=== PATIENT | male | born 1955 | race Caucasian/White ===

== ENCOUNTER → 2018-05-06 15:56 | Outpatient (CLI) | payer OTHER, SELFPAY ==
--- NOTE | 2018-05-06 16:02 | RAD_ITS ---
STUDY: X-RAY - ABDOMEN/PELVIS REASON FOR EXAM: Male, 63 years old. Right kidney stone. TECHNIQUE: For AP images of the abdomen were obtained. COMPARISON: April 02, 2017 FINDINGS: There is an unremarkable bowel gas pattern. There is no demonstrated free abdominal air. There is a 9.2 mm calcific round density within the expected region of the right kidney. Normal soft tissue structures. Normal visualized osseous structures. RAD/Abd Inc Decub and/or Erect IMPRESSION: 9.2 mm right renal calculus. Electronically Signed: Yasmin Ayala MD at 19:58 EDT Tel , Service support ,
== END ==
PROVIDERS: Family Provider Family Medicine Geriatric Medicine; PCP Family Medicine Geriatric Medicine; Visit Provider Nurse Practitioner Adult Health
DX: N20.0 Calculus of kidney (principal)
CPT/HCPCS: 74019

== ENCOUNTER → 2018-07-29 16:04 | Outpatient (CLI) | payer OTHER, SELFPAY ==
[2018-07-29 17:16] LABS: Absolute Lymphocyte Count 1.71 X10^3/ul (0.83-4.51); Absolute Neutrophil Count 3.9 X10^3/uL (2.0-7.7); Basophil# 0.02 X10^3/uL; Basophil% 0.3 % (0-1); Eosinophil# 0.33 X10^3/uL; Eosinophils% 5.2 % (0-5); Hematocrit 45.3 % (40-54); Hemoglobin 15.3 g/dl (13.0-16.5); Lymphocyte # 1.71 X10^3/ul (4.0); Mean Corp Hgb Conc 33.8 g/gl (32-36); Mean Corpuscular Hgb 29.8 pg (27.0-32.0); Mean Corpuscular Volume 88.1 fL (80-94); Mean Platelet Vol. 10.7 fl (6.2-12.0); Monocyte# 0.36 X10^3/uL; Monocyte% 5.7 % (0-10); Neutrophil % 61.5 % (47-70); Platelet Count 255 K/mm3 (150-450); RBC Distribution Width CV 13.4 % (11.6-14.6); Red Blood Count 5.14 M/mm3 (4.6-6.2); White Blood Count 6.3 K/mm3 (4.4-11.0)
[2018-07-29 17:42] LABS: POSITIVE COUNT NO; POSITIVE DIFFERENTIAL NO; POSITIVE MORPHOLOGY NO
[2018-07-29 17:44] LABS: ALB/GLOB Ratio 1.1 RATIO (0.9-2.4); AST(SGOT) 16 U/L (15-37); Alanine Aminotransfer ALT/SGPT 32 U/L (16-61); Alkaline Phosphatase 59 U/L (45-117); Anion Gap 7 (5-15); BUN 16 mg/dL (7-18); Calcium,Total 8.7 mg/dL (8.5-10.1); Chloride 107 mmol/L (98-107); Creatinine, Serum 1.14 mg/dL (0.70-1.30); EST Glomerular Filtration Rate 69 mL/min (>60); Est Glom Filt Rate - Afr Amer 84 mL/min (>60); Globulin 3.5 g/dL (2.2-4.2); Glucose 100 mg/dL (74-106); PSA,Total - Annual Screen 0.78 ng/mL (0.00-4.00); Protein, Total 7.5 g/dL (6.4-8.2); Sodium Level 143 mmol/L (136-145); Thyroid Stim Hormone (TSH) 2.21 uIU/mL (0.358-3.74); Uric Acid 4.2 mg/dL (3.5-7.2)
== END ==
PROVIDERS: Family Provider Family Medicine Geriatric Medicine; PCP Family Medicine Geriatric Medicine; Visit Provider Family Medicine Geriatric Medicine
DX: I10 Essential (primary) hypertension (principal); M10.9 Gout, unspecified; Z12.5 Encounter for screening for malignant neoplasm of prostate
CPT/HCPCS: 36415; 80053; 84153; 84443; 84550; 85025; G0103

== ENCOUNTER → 2019-07-04 | Outpatient (CLI) | payer OTHER, SELFPAY | END | disposition home or self-care (01) | LOC: LAB 16:37 | PROVIDERS: Family Provider Family Medicine Geriatric Medicine; PCP Family Medicine Geriatric Medicine; Referring Provider Urology; Visit Provider Urology | DX: Z12.5 Encounter for screening for malignant neoplasm of prostate (principal) ==

== ENCOUNTER → 2019-08-02 | Outpatient (CLI) | payer OTHER, SELFPAY ==
[2019-08-02 16:56] LABS: Absolute Lymphocyte Count 1.81 X10^3/uL (0.83-4.51); Absolute Neutrophil Count 4.8 X10^3/uL (2.0-7.7); Basophil# 0.03 X10^3/uL; Basophil% 0.4 % (0-1); Eosinophil# 0.39 X10^3/uL; Eosinophils% 5.2 % (0-5); Hematocrit 43.9 % (40-54); Hemoglobin 14.8 g/dL (13.0-16.5); Lymphocyte # 1.81 X10^3/ul (4.0); Lymphocyte % 24.1 % (19-41); Mean Corp Hgb Conc 33.7 g/dL (32-36); Mean Corpuscular Hgb 29.3 pg (27.0-32.0); Mean Corpuscular Volume 86.9 fL (80-94); Mean Platelet Vol. 9.9 fl (6.2-12.0); Monocyte# 0.48 X10^3/uL; Monocyte% 6.4 % (0-10); NRBC Flagged by Analyzer 0 % (0-5); Neutrophil # 4.78 X10^3/uL (2.7-7.7); Neutrophil % 63.6 % (47-70); Platelet Count 243 K/mm3 (150-450); RBC Distribution Width SD 40.9 fl (35.1-43.9); Red Blood Count 5.05 M/mm3 (4.6-6.2); White Blood Count 7.5 K/mm3 (4.4-11.0)
[2019-08-02 17:57] LABS: ALB/GLOB Ratio 1.2 RATIO (0.9-2.4); AST(SGOT) 14 U/L (15-37); Alanine Aminotransfer ALT/SGPT 19 U/L (16-61); Albumin, Serum 4.1 g/dL (3.2-5.0); Alkaline Phosphatase 59 U/L (45-117); Anion Gap 6 (5-15); BUN 15 mg/dL (7-18); BUN/Creat Ratio 14.3 RATIO (10-20); Calcium,Total 8.6 mg/dL (8.5-10.1); Chloride 110 mmol/L (98-107); Creatinine, Serum 1.05 mg/dL (0.70-1.30); EST Glomerular Filtration Rate 76 mL/min (>60); Est Glom Filt Rate - Afr Amer 92 mL/min (>60); Globulin 3.4 g/dL (2.2-4.2); Glucose 91 mg/dL (74-106); PSA,Total - Annual Screen 4.19 ng/mL (0.00-4.00); Potassium 3.5 mmol/L (3.5-5.1); Protein, Total 7.5 g/dL (6.4-8.2); Sodium Level 143 mmol/L (136-145); Thyroid Stim Hormone (TSH) 2.52 uIU/mL (0.358-3.74); Uric Acid 4.2 mg/dL (3.5-7.2)
== END | disposition home or self-care (01) ==
LOC: POLAB3 16:33
PROVIDERS: Family Provider Family Medicine Geriatric Medicine; PCP Family Medicine Geriatric Medicine; Visit Provider Family Medicine Geriatric Medicine
DX: I10 Essential (primary) hypertension (principal); M10.9 Gout, unspecified; Z12.5 Encounter for screening for malignant neoplasm of prostate
CPT/HCPCS: 36415; 80053; 84153; 84443; 84550; 85025; G0103

== ENCOUNTER → 2019-09-06 14:26 | Outpatient (CLI) | payer OTHER, SELFPAY ==
[2019-09-06 16:18] LABS: PSA,Total- Diagnostic 2.12 ng/mL (0.0-4.0)
== END ==
PROVIDERS: Family Provider Family Medicine Geriatric Medicine; PCP Family Medicine Geriatric Medicine; Referring Provider Urology; Visit Provider Urology
DX: R97.20 Elevated prostate specific antigen [PSA] (principal)
CPT/HCPCS: 36415; 84153

== ENCOUNTER → 2020-08-07 14:12 | Outpatient (CLI) | payer OTHER, SELFPAY ==
[2020-08-07 16:23] LABS: Absolute Lymphocyte Count 1.72 X10^3/uL (0.83-4.51); Absolute Neutrophil Count 4.3 X10^3/uL (2.0-7.7); Basophil# 0.03 X10^3/uL; Basophil% 0.5 % (0-1); Eosinophil# 0.27 X10^3/uL; Eosinophils% 4.1 % (0-5); Hematocrit 47.5 % (40-54); Hemoglobin 15.4 g/dL (13.0-16.5); Lymphocyte # 1.72 X10^3/ul (4.0); Lymphocyte % 25.9 % (19-41); Mean Corp Hgb Conc 32.4 g/dL (32-36); Mean Corpuscular Volume 89.5 fL (80-94); Mean Platelet Vol. 10.5 fl (6.2-12.0); Monocyte# 0.34 X10^3/uL; Monocyte% 5.1 % (0-10); NRBC Flagged by Analyzer 0 % (0-5); Neutrophil # 4.25 X10^3/uL (2.7-7.7); Neutrophil % 64.1 % (47-70); Platelet Count 276 K/mm3 (150-450); RBC Distribution Width CV 12.7 % (11.6-14.6); Red Blood Count 5.31 M/mm3 (4.6-6.2); White Blood Count 6.6 K/mm3 (4.4-11.0)
[2020-08-07 16:49] LABS: ALB/GLOB Ratio 1.2 RATIO (0.9-2.4); AST(SGOT) 30 U/L (15-37); Alanine Aminotransfer ALT/SGPT 37 U/L (16-61); Albumin, Serum 4.2 g/dL (3.2-5.0); Alkaline Phosphatase 56 U/L (45-117); Anion Gap 5 (5-15); BUN 16 mg/dL (7-18); BUN/Creat Ratio 14.4 RATIO (10-20); Calcium,Total 8.7 mg/dL (8.5-10.1); Chloride 109 mmol/L (98-107); Creatinine, Serum 1.11 mg/dL (0.70-1.30); EST Glomerular Filtration Rate 71 mL/min (>60); Est Glom Filt Rate - Afr Amer 86 mL/min (>60); Globulin 3.5 g/dL (2.2-4.2); Glucose 79 mg/dL (74-106); PSA,Total - Annual Screen 0.72 ng/mL (0.00-4.00); Potassium 4.1 mmol/L (3.5-5.1); Protein, Total 7.7 g/dL (6.4-8.2); Sodium Level 140 mmol/L (136-145); Uric Acid 4.5 mg/dL (3.5-7.2)
== END ==
PROVIDERS: PCP Family Medicine Geriatric Medicine; Visit Provider Family Medicine Geriatric Medicine
DX: I10 Essential (primary) hypertension (principal); M10.9 Gout, unspecified
CPT/HCPCS: 36415; 80053; 84153; 84443; 84550; 85025; G0103

== ENCOUNTER → 2020-08-21 12:07 | Outpatient (CLI) | payer OTHER, SELFPAY ==
--- NOTE | 2020-08-21 | TISS_PTH ---
PATIENT: DORIS RANKIN LOC: [facility] U#:[id number] AGE/SX: 70/M ROOM: RE08/21/[address]: Dr. Madhav Weston MD : 1955 BED: DIS: SPEC #: [id number] RECD: 08/21/20 12:42 STATUS: ZEV FREDERICK #: [id number] LORI: 08/21/20 00:[address]: Madhav Weston Chi DEPT: SURGICAL PATHOLOGY RECD BY: Laurita Sanders Tissues: TISSUE SURGICALLY REMOVED Procedures: Surgery Specimen Level IV HEADER OPERATION: Left leg biopsy PRE-OP DIAGNOSIS: Left leg lesion TISSUE SUBMITTED: Left leg lesion MICROSCOPIC DIAGNOSIS Left leg lesion, shave biopsy: Dermatofibroma, extending up to the deep margin of the specimen. DEMETRIO:colette 08/22/20 MICROSCOPIC DESCRIPTION Slides are reviewed. GROSS DESCRIPTION Received in fixative is one container labeled with the patient's name and designated left leg. The specimen consists of a round piece of romeo-white skin measuring 0.5 x 0.5 x 0.1 cm. The specimen is inked and submitted entirely in one cassette. It will be serially sectioned at the time of embedding. / SJ:colette 08/21/20 TC:1 CPT: 37840
== END ==
PROVIDERS: PCP Family Medicine Geriatric Medicine; Referring Provider Family Medicine Geriatric Medicine; Visit Provider Family Medicine Geriatric Medicine
DX: L98.9 Disorder of the skin and subcutaneous tissue, unspecified (principal)
CPT/HCPCS: 88305

== ENCOUNTER → 2020-10-10 17:32 | Outpatient (CLI) | payer OTHER, SELFPAY | PROVIDERS: PCP Family Medicine Geriatric Medicine; Referring Provider Family Medicine Geriatric Medicine; Visit Provider Family Medicine Geriatric Medicine | DX: R06.89 Other abnormalities of breathing (principal) | CPT/HCPCS: 87633; 87635; C9803; U0003 ==

== ENCOUNTER → 2021-08-07 14:15 | Outpatient (CLI) | payer OTHER, SELFPAY ==
[2021-08-07 17:20] LABS: Absolute Lymphocyte Count 1.78 X10^3/uL (0.83-4.51); Absolute Neutrophil Count 4.4 X10^3/uL (2.0-7.7); Basophil# 0.03 X10^3/uL; Basophil% 0.4 % (0-1); Eosinophil# 0.39 X10^3/uL; Eosinophils% 5.5 % (0-5); Hematocrit 48.1 % (40-54); Hemoglobin 15.5 g/dL (13.0-16.5); Lymphocyte # 1.78 X10^3/ul (0.83-4.51); Mean Corp Hgb Conc 32.2 g/dL (32-36); Mean Corpuscular Hgb 28.9 pg (27.0-32.0); Mean Corpuscular Volume 89.7 fL (80-94); Monocyte# 0.47 X10^3/uL; Monocyte% 6.6 % (0-10); NRBC Flagged by Analyzer 0 % (0-5); Neutrophil # 4.41 X10^3/uL (2.7-7.7); Neutrophil % 62.1 % (47-70); Platelet Count 288 K/mm3 (150-450); RBC Distribution Width CV 12.9 % (11.6-14.6); RBC Distribution Width SD 42.3 fl (35.1-43.9); Red Blood Count 5.36 M/mm3 (4.6-6.2); White Blood Count 7.1 K/mm3 (4.4-11.0)
[2021-08-07 17:51] LABS: AST(SGOT) 16 U/L (15-37); Alanine Aminotransfer ALT/SGPT 28 U/L (16-61); Albumin, Serum 3.7 g/dL (3.2-5.0); Alkaline Phosphatase 57 U/L (45-117); Anion Gap 7 (5-15); BUN 15 mg/dL (7-18); BUN/Creat Ratio 13.2 RATIO (10-20); Calcium,Total 8.7 mg/dL (8.5-10.1); Chloride 106 mmol/L (98-107); Creatinine, Serum 1.14 mg/dL (0.70-1.30); EST Glomerular Filtration Rate 69 mL/min (>60); Est Glom Filt Rate - Afr Amer 83 mL/min (>60); Globulin 3.8 g/dL (2.2-4.2); Glucose 80 mg/dL (74-106); PSA,Total - Annual Screen 1.65 ng/mL (0.00-4.00); Protein, Total 7.5 g/dL (6.4-8.2); Sodium Level 140 mmol/L (136-145); Thyroid Stim Hormone (TSH) 2.47 uIU/mL (0.358-3.74); Uric Acid 3.9 mg/dL (3.5-7.2)
== END ==
PROVIDERS: PCP Family Medicine Geriatric Medicine; Visit Provider Family Medicine Geriatric Medicine
DX: I10 Essential (primary) hypertension (principal); M10.9 Gout, unspecified; Z12.5 Encounter for screening for malignant neoplasm of prostate
CPT/HCPCS: 36415; 80053; 84153; 84443; 84550; 85025; G0103

== ENCOUNTER → 2021-08-13 15:16 | Outpatient (CLI) | payer OTHER, SELFPAY ==
--- NOTE | 2021-08-13 | LES_PTH ---
PATIENT: DORIS RANKIN LOC: [facility] U#:[id number] AGE/SX: 70/M ROOM: RE08/13/[address]: Dr. Madhav Weston MD : 1955 BED: DIS: SPEC #: [id number] RECD: 08/13/21 16:36 STATUS: ZEV FREDERICK #: [id number] LORI: 08/13/21 00:[address]: Madhav Weston Chi DEPT: SURGICAL PATHOLOGY RECD BY: Santos Lopez Tissues: Skin of chest Procedures: Surgery Specimen Level IV HEADER OPERATION: Shave biopsy PRE-OP DIAGNOSIS: Chest lesion TISSUE SUBMITTED: Chest MICROSCOPIC DIAGNOSIS Chest lesion, shave biopsy: Seborrheic keratosis. Negative for carcinoma. DEMETRIO:colette 08/15/2021 MICROSCOPIC DESCRIPTION Slides are reviewed. GROSS DESCRIPTION Received in fixative is one container labeled with the patient's name and designated chest. The specimen consists of a shave biopsy of romeo-brown skin measuring 0.8 x 0.7 x 0.2 cm. The specimen is inked, bisected and submitted entirely in one cassette. / SJ:rg 08/14/21 TC:1 CPT: 53828
== END ==
PROVIDERS: PCP Family Medicine Geriatric Medicine; Visit Provider Family Medicine Geriatric Medicine
DX: L98.9 Disorder of the skin and subcutaneous tissue, unspecified (principal)
CPT/HCPCS: 88305

== ENCOUNTER → 2021-08-21 09:24 | Outpatient (CLI) | payer OTHER, SELFPAY ==
[2021-08-21 12:55] LABS: Anion Gap 5 (5-15); BUN 19 mg/dL (7-18); BUN/Creat Ratio 16.8 RATIO (10-20); Chloride 106 mmol/L (98-107); Creatinine, Serum 1.13 mg/dL (0.70-1.30); EST Glomerular Filtration Rate 69 mL/min (>60); Est Glom Filt Rate - Afr Amer 84 mL/min (>60); Glucose 95 mg/dL (74-106); Potassium 4.5 mmol/L (3.5-5.1); Sodium Level 139 mmol/L (136-145)
== END ==
PROVIDERS: PCP Family Medicine Geriatric Medicine; Visit Provider Family Medicine Geriatric Medicine
DX: I10 Essential (primary) hypertension (principal)
CPT/HCPCS: 36415; 80048

== ENCOUNTER 2022-01-22 07:15 | Emergency (ER) | payer OTHER, SELFPAY ==
[2022-01-22 07:16] VITALS: BP 172/107; PULSE 80; RESP 14; TEMP 36.6; O2SAT 96; BMI 34.7
--- NOTE | 2022-01-22 07:29 | CT_ITS ---
STUDY: CT ABDOMEN AND PELVIS WITHOUT CONTRAST REASON FOR EXAM: Male, 66 years old. Kidney Stone. Right flank pain. RADIATION DOSAGE (If Supplied By Facility): CTDIvol = ( 18.50 ) mGy, DLP = ( 1030.98 ) mGycm TECHNIQUE: Transaxial images were obtained from the dome of the diaphragm to the symphysis pubis without oral contrast, and without intravenous contrast. Sagittal and coronal images were reconstructed. Individualized dose optimization techniques were used for this CT. COMPARISON: Comparison is made with prior study dated 03/24/2015. FINDINGS: Minimal increased linear markings at the lung bases suggestive of mild lingular atelectasis. Right coronary artery calcification. There is a 9.4 mm hypodensity in the peripheral inferior aspect of the right lobe of the liver. This most likely advance a small cyst. This is unchanged. Normal gallbladder and extrahepatic biliary system. Normal spleen. Normal pancreas. Normal bilateral adrenal glands. There is a 1.2 cm calculus in the lower pole calyx of the right kidney. There is also evidence of a 3.7 mm nonobstructive calculus in the lower pole calyx of the right kidney. There is a mild degree of right hydronephrosis and proximal right hydroureter due to a 3 mm calculus in the mid portion of the right ureter. 4 mm nonobstructive calculus in the midpole calyx of the left kidney. There is fluid distention of the stomach. Normal small intestine. Normal colon. The appendix is visualized and appears normal. There is scattered atherosclerotic calcification of the abdominal aorta, without a demonstrated aneurysm. Normal inferior vena cava. Normal retroperitoneum. Normal urinary bladder. There is enlargement of the prostate gland. The prostate measures 4.4 cm x 5.2 cm. There is a left-sided inguinal hernia containing adipose tissue. Normal osseous structures. CT/Abdomen/Pelvis without Cont IMPRESSION: 3 mm calculus in the midportion of right ureter causing mild degree of right-sided hydronephrosis and proximal right hydroureter. Nonobstructive bilateral intrarenal calculi more prominent on the right side. Findings suggestive of a 9.4 mm cyst in the inferior medial aspect of the right lobe of the liver. Electronically Signed: Jonathan Whitten MD at 8:22 EDT ,
--- NOTE | 2022-01-22 07:30 | EX.ED.GUMALE ---
HPI History of Present Illness Chief Complaint: Flank Pain Informant: patient Pain Onset: Today Narrative Narrative: Sudden right flank pain 4 AM this morning was just awakening. Had radiating pain down the side now back to the back. Nausea vomiting x1. History of uric acid stones. Last stone over a year ago. Followed by Dr. Dow. States had sepsis with renal stones in the past. No intervention was performed. No allergies. Denies history of kidney injury or gastric ulcers. Drink 3 bottles of water this morning has not urinated. Yesterday no dysuria or frequency. No fevers. Prior similar symptoms: Yes PFSH PFS Medical History (Updated 01/22/22 @ 10:[address] Romeo Otero DO) Hypertension Kidney stone Home Medications tamsulosin 0.4 mg PO DAILY 7 Days capsule 03/21/15 [Rx Last Taken 03/22/15 00:30] febuxostat [Uloric] 40 mg PO DAILY 03/22/15 [History Last Taken 03/24/15 08:00] pravastatin 80 mg PO QHS 03/22/15 [History Last Taken 03/23/15 22:00] amlodipine 10 mg PO DAILY #60 tablet 03/24/15 [Rx Last Taken Unknown] hydrocodone-acetaminophen 1 - 2 tab PO Q4H PRN PRN #20 tablet 03/24/15 [Rx Last Taken 03/24/15 14:45 2] levofloxacin [Levaquin] 500 mg PO DAILY #7 tab 03/24/15 [Rx Last Taken Unknown] diazepam 5 - 10 mg PO 4X/DAY PRN PRN #30 tab 03/26/15 [Rx Last Taken Unknown] ondansetron 4 mg PO Q6H PRN #10 tab 01/22/22 [Rx Last Taken Unknown] oxycodone-acetaminophen [Percocet] 1 tab PO Q6H PRN 3 Days #12 tab 01/22/22 [Rx Last Taken Unknown] tamsulosin [Flomax] 0.4 mg PO DAILY #7 cap 01/22/22 [Rx Last Taken Unknown] Allergy/AdvReac Type Severity Reaction Status Date / Time No Known Allergies Allergy Verified 01/22/22 07:18 Social History Smoking Status: Never smoker ROS ROS ED Constitutional Constitutional ED: Denies chills, fever(s) or sweats Eyes Eyes: Denies change in vision ENT ENT ED: Denies dysphagia or sore throat Cardiovascular Cardiovascular: Denies chest pain, leg edema, palpitations or racing heartbeat Respiratory/Chest Respiratory/Chest: Denies cough, dyspnea or dyspnea on exertion Gastrointestinal Gastrointestinal: Reports nausea and vomiting; Denies abdominal pain or diarrhea Genitourinary Genitourinary ED: Denies dysuria, hematuria or urinary frequency Musculoskeletal Musculoskeletal: Reports back pain; Denies extremity pain or neck pain Integumentary Denies rash or wounds Neurologic Neurologic: Denies headache(s), paresthesias or weakness EXAM Physical Exam Const Vital Signs: 01/22/22 07:16 Temperature 97.9 F Temperature Source Temporal Pulse Rate 80 Respiratory Rate 14 Blood Pressure 172/107 H Blood Pressure Mean 128 Pulse Ox 96 Oxygen Delivery Method Room Air Positive well nourished and well developed Constitutional Narrative: Uncomfortable, nontoxic General Appearance ED: well developed HEENT Reports moist mucous membranes normocephalic and atraumatic Eyes PERRL, EOMs intact bilaterally and conjunctivae normal General Eye ED: Yes normal appearance of both eyes Neck no lymphadenopathy and supple General: Negative for tenderness Chest Wall Chest: Negative for tenderness Resp normal respiratory effort and normal air movement Effort and Inspection: symmetric chest movement; Negative for respiratory distress Cardio regular rate, regular rhythm and no murmurs Peripheral Pulses: pulses 2+ throughout GI normal to inspection, nondistended, normoactive bowel sounds, non-tender and non-distended Auscultation: normoactive bowel sounds Palpation: soft; Negative for guarding or rebound tenderness present Back/Spine no CVA tenderness and no thoracic nor lumbar tenderness Extremity normal to inspection General Extremety ED: Negative for edema or tenderness General Extremity: Negative for edema Neuro oriented x3 and no sensory deficits noted Sensorium / Orientation: awake and alert Skin no rashes or lesions noted and no wounds MDM MDM MDM Narrative Medical decision making narrative: Patient uncomfortable right renal colic. Renal stone protocol, denies any history gastric ulcers or renal insufficiency. Zofran Toradol morphine given with IV fluids. Labs did return normal white count slight renal insufficiency creatinine 1.53. He was given IV fluids. Urine noted blood +25 leukocytes however negative nitrites or WBCs. Culture sent. He is not having any urine symptoms. CT scan 3 mm right mid ureteral stone with hydro-. Additional morphine was given for symptom control. Prior to discharge symptoms slightly returning therefore oxycodone was given along with started on Flomax. He does follow with Dr. Dow. He will call for follow-up with strict return precautions. All questions were answered. Lab Data Attestation: I reviewed the patient's lab results. Labs: Laboratory Results - last 24 hr 01/22/22 01/22/22 01/22/22 07:25 07:25 09:00 WBC 7.2 RBC 5.59 Hgb 16.4 Hct 49.0 MCV 87.7 MCH 29.3 MCHC 33.5 RDW Std Deviation 39.8 RDW Coeff of Luís 12.3 Plt Count 269 MPV 10.0 Immature Gran % (Auto) 0.400 Neut % (Auto) 70.7 H Lymph % (Auto) 19.2 Woodruff % (Auto) 5.0 Eos % (Auto) 4.3 Baso % (Auto) 0.4 Absolute Neuts (auto) 5.1 Absolute Lymphs (auto) 1.38 Nucleated RBC % 0 Sodium 140 Potassium 4.0 Chloride 107 Carbon Dioxide 29.0 Anion Gap 4 L BUN 22 H Creatinine 1.53 H Estim Creat Clear Calc 51.95 Est GFR (MDRD) Af Amer 59 L Est GFR (MDRD) Non-Af 49 L BUN/Creatinine Ratio 14.4 Glucose 132 H Calcium 8.7 Urine Color Yellow Urine Clarity Clear Urine pH 5.0 Ur Specific [place] 1.025 Urine Protein 100 H Urine Glucose (UA) Normal Urine Ketones Negative Urine Occult Blood 250 H Urine Nitrite Negative Urine Bilirubin Negative Urine Urobilinogen Normal Ur Leukocyte Esterase 25 H Urine RBC 0-5 SEEN Urine WBC 0-5 SEEN Ur Squamous Epith Cells 0-5 SEEN Urine Bacteria 0 SEEN Urine Mucus 0 SEEN Radiography Diagnostic Testing: Clinical Impression(s) from Imaging Studies Abdomen/Pelvis CT 01/22/22 07:29 IMPRESSION: 3 mm calculus in the midportion of right ureter causing mild degree of right-sided hydronephrosis and proximal right hydroureter. Nonobstructive bilateral intrarenal calculi more prominent on the right side. Findings suggestive of a 9.4 mm cyst in the inferior medial aspect of the right lobe of the liver. Electronically Signed: Jonathan Whitten MD at 8:22 EDT , Discharge Plan Triage Chief Complaint: Flank Pain ED Provider: Romeo Otero Dx/Rx/DC Orders Clinical Impression: Urolithiasis, Hematuria, Acute renal insufficiency, Renal colic on right side Instructions: ED Hematuria, ED Renal Insufficiency, ED Kidney Stone w/ Colic Prescriptions: New oxycodone-acetaminophen [Percocet] 5-325 mg tablet 1 tab PO Q6H PRN (Reason: pain) 3 Days Qty: 12 RF: 0 ondansetron 4 mg tablet,disintegrating 4 mg PO Q6H PRN (Reason: nausea and vomiting) Qty: 10 RF: 0 tamsulosin [Flomax] 0.4 mg capsule 0.4 mg PO DAILY Qty: 7 RF: 0 No Action tamsulosin 0.4 MG capsule 0.4 mg PO DAILY 7 Days RF: 0 pravastatin 80 MG tablet 80 mg PO QHS RF: 0 febuxostat [Uloric] 40 MG tablet 40 mg PO DAILY RF: 0 levofloxacin [Levaquin] 500 MG tablet 500 mg PO DAILY Qty: 7 RF: 0 hydrocodone-acetaminophen 1 TABLET tablet 1 - 2 tab PO Q4H PRN PRN (Reason: Pain) Qty: 20 RF: 0 amlodipine 10 MG tablet 10 mg PO DAILY Qty: 60 RF: 0 diazepam 5 MG tablet 5 - 10 mg PO 4X/DAY PRN PRN (Reason: back pain/muscle spasm) Qty: 30 RF: 0 Primary Care Provider: Madhav Weston Chi Referrals: Leon Dow MD [STAFF PHYSICIAN] - 3-5 Days Madhav Weston Chi, MD [Primary Care Provider] - Activity Restrictions/Additional Instructions: You have a 3 mm stone right mid ureter with hydronephrosis. You have a creatinine 1.5 today. Take pain and nausea medicines as prescribed. Follow-up with your urologist. Return if any worsening symptoms. Disposition Disposition: Home, Self Care Discharge Date/Time: 01/22/22 10:45
[2022-01-22] MEDS: Morphine 4 MG/ML Syringe IV ×2 (07:38→08:40)
[2022-01-22] MEDS: Ketorolac 15 MG/ML Vial IV (07:41)
[2022-01-22] MEDS: Ondansetron 4 MG/2 ML Vial IV (07:41)
[2022-01-22] MEDS: 0.9% Normal Saline 1,000 ML 250 ML IV (07:42)
[2022-01-22 07:50] LABS: Anion Gap 4 (5-15); BUN 22 mg/dL (7-18); BUN/Creat Ratio 14.4 RATIO (10-20); Calcium,Total 8.7 mg/dL (8.5-10.1); Chloride 107 mmol/L (98-107); Creatinine, Serum 1.53 mg/dL (0.70-1.30); EST Glomerular Filtration Rate 49 mL/min (>60); Est Glom Filt Rate - Afr Amer 59 mL/min (>60); Estimated Creatinine Clearance 51.95 ml/min; Glucose 132 mg/dL (74-106); Sodium Level 140 mmol/L (136-145)
[2022-01-22 08:05] LABS: Absolute Lymphocyte Count 1.38 X10^3/uL (0.83-4.51); Absolute Neutrophil Count 5.1 X10^3/uL (2.0-7.7); Basophil# 0.03 X10^3/uL; Basophil% 0.4 % (0-1); Eosinophil# 0.31 X10^3/uL; Eosinophils% 4.3 % (0-5); Hemoglobin 16.4 g/dL (13.0-16.5); Lymphocyte # 1.38 X10^3/ul (0.83-4.51); Lymphocyte % 19.2 % (19-41); Mean Corp Hgb Conc 33.5 g/dL (32-36); Mean Corpuscular Hgb 29.3 pg (27.0-32.0); Mean Corpuscular Volume 87.7 fL (80-94); Monocyte# 0.36 X10^3/uL; NRBC Flagged by Analyzer 0 % (0-5); Neutrophil # 5.06 X10^3/uL (2.7-7.7); Neutrophil % 70.7 % (47-70); Platelet Count 269 K/mm3 (150-450); RBC Distribution Width CV 12.3 % (11.6-14.6); RBC Distribution Width SD 39.8 fl (35.1-43.9); Red Blood Count 5.59 M/mm3 (4.6-6.2); White Blood Count 7.2 K/mm3 (4.4-11.0)
[2022-01-22 09:10] LABS: Bacteria 0 SEEN /hpf (None Seen); Mucous, Urine 0 SEEN /hpf (<or=2+)
[2022-01-22 09:12] LABS: Color, Urine Yellow (Yellow); Glucose, Dipstick Normal (Normal); Ketone-Dipstick Negative (Negative); Leukocyte Esterase-Dipstick 25 /ul (Negative); Nitrite-Dipstick Negative (Negative); Occult Blood-Urine 250 /ul (Negative); Protein-Dipstick 100 mg/dl (Negative); Specific Gravity, Urine 1.025 (1.002-1.030); Urine Bilirubin Dipstick Negative (Negative); Urine Clarity Clear (Clear); Urine Urobilinogen Normal (Normal)
[2022-01-22 09:30] LABS: Red Blood Cells-Urine 0-5 SEEN /hpf (0-5); Squamous Epithelial Cells - UA 0-5 SEEN /hpf (0-5); White Blood Cells 0-5 SEEN /hpf (0-5)
[2022-01-22] MEDS: Tamsulosin HCl 0.4 MG Capsule PO (10:28)
[2022-01-22] MEDS: oxyCODONE 5 MG Tablet PO (10:28)
== END 2022-01-22 10:45 | disposition home or self-care (01) ==
PROVIDERS: Emergency Provider Emergency Medicine; PCP Family Medicine Geriatric Medicine; Visit Provider Emergency Medicine
DX: N20.9 Urinary calculus, unspecified (principal); R31.9 Hematuria, unspecified
CPT/HCPCS: 74176; 80048; 81001; 85025; 96374; 96375; 96376; 99282; J7030; A4216; J2405

== ENCOUNTER → 2022-02-18 | Outpatient (CLI) | payer OTHER, SELFPAY ==
--- NOTE | 2022-02-18 08:31 | EKG12_ITS ---
Test Reason : PRE-OP Blood Pressure : / mmHG Vent. Rate : 065 BPM Atrial Rate : 065 BPM P-R Int : 142 ms QRS Dur : 078 ms QT Int : 398 ms P-R-T Axes : 007 -05 026 degrees QTc Int : 413 ms Normal sinus rhythm Normal ECG Confirmed by EVERT SEARS, OSIEL ([id number]), make up editor ELISEO ARMENDARIZ ([id number]) on 02/19/2022 11:14:25 AM Referred By: Leon Dow Confirmed By:OSIEL LOYD MD
== END | disposition home or self-care (01) ==
LOC: PSN 08:28
PROVIDERS: PCP Family Medicine Geriatric Medicine; Referring Provider Urology; Visit Provider Urology
DX: Z01.810 Encounter for preprocedural cardiovascular examination (principal)
CPT/HCPCS: 93005

== ENCOUNTER 2022-03-04 14:08 | Emergency (ER) | payer OTHER, SELFPAY ==
[2022-03-04 14:09] VITALS: BP 173/100; PULSE 92; RESP 14; TEMP 37.2; O2SAT 94; BMI 34.8
--- NOTE | 2022-03-04 14:16 | CT_ITS ---
STUDY: CT ABDOMEN AND PELVIS WITHOUT CONTRAST REASON FOR EXAM: Male, 66 years old. Pain -- stent removed today, lithotripsy, rt flank pain RADIATION DOSAGE (If Supplied By Facility): CTDIvol = ( 19.54 ) mGy, DLP = ( 1093.79 ) mGycm TECHNIQUE: Transaxial images were obtained from the dome of the diaphragm to the symphysis pubis without oral contrast, and without intravenous contrast. Sagittal and coronal images were reconstructed. Individualized dose optimization techniques were used for this CT. COMPARISON: 01/22/2022. FINDINGS: The visualized lung bases are unremarkable. The visualized portions of the heart are within normal limits. Stable subcentimeter hepatic cysts or hemangiomata. No required imaging follow-up needed given high likelihood of benign nature. Normal gallbladder and extrahepatic biliary system. Normal spleen. Normal pancreas. Normal bilateral adrenal glands. Mild right hydronephrosis and hydroureter with punctate (2 mm) calcification in the distal right ureter on image 156 of series 2 (previously in the mid right ureter). Fragmentation of right renal calculus since the prior study with multiple calculi fragments seen in the right collecting system. Nonobstructing left renal calculus is similar. Normal visualized stomach. Normal small intestine. There are multiple colonic diverticula consistent with diverticulosis. There is non-visualization of the appendix. Normal abdominal aorta. Normal inferior vena cava. Normal retroperitoneum. Normal urinary bladder. Normal abdominal wall. Normal osseous structures. CT/Abdomen/Pelvis without Cont IMPRESSION: 1. Mild right hydronephrosis with distal (previously mid) right ureter calculus, measuring 2 mm. 2. Fragmentation of right renal calculi as prior CT. Electronically Signed: Jamie Rosales MD ([place]) at 15:11 EDT Reading Location ID and State: , Service support ,
--- NOTE | 2022-03-04 14:17 | EDS_ITS ---
HPI HPI - GI History of Present Illness Chief Complaint: Abd Pain Detail of Chief Complaint: Abdomen and back pain that started today Informant: patient Abdominal Pain/Flank Pain Current Severity: 10/10 Nausea/Vomiting/Emesis GI Symptom: Positive for Nausea Narrative Narrative: Patient presents to the emergency department complaint of abdominal pain and back pain after having his ureteral stent removed today. Patient states that he had surgery 5 days ago for kidney stone he had a stent placed. Patient denies fever. He denies hematuria. This morning there was some pain after removal of the stent but the oral pain meds were helping. Pain now is severe across his back and right lower abdomen. Patient's had some nausea but no vomiting. Prior similar symptoms: Yes PFSH [facility] Medical History (Updated 03/04/22 @ 15:[address] Clarissa Rogers, ) Hypertension Kidney stone Home Medications tamsulosin 0.4 mg PO DAILY 7 Days capsule 03/21/15 [Rx Last Taken 03/22/15 00:30] febuxostat [Uloric] 40 mg PO DAILY 03/22/15 [History Last Taken 03/24/15 08:00] pravastatin 80 mg PO QHS 03/22/15 [History Last Taken 03/23/15 22:00] amlodipine 10 mg PO DAILY #60 tablet 03/24/15 [Rx Last Taken Unknown] hydrocodone-acetaminophen 1 - 2 tab PO Q4H PRN PRN #20 tablet 03/24/15 [Rx Last Taken 03/24/15 14:45 2] levofloxacin [Levaquin] 500 mg PO DAILY #7 tab 03/24/15 [Rx Last Taken Unknown] diazepam 5 - 10 mg PO 4X/DAY PRN PRN #30 tab 03/26/15 [Rx Last Taken Unknown] ondansetron 4 mg PO Q6H PRN #10 tab 01/22/22 [Rx Last Taken Unknown] oxycodone-acetaminophen [Percocet] 1 tab PO Q6H PRN 3 Days #12 tab 01/22/22 [Rx Last Taken Unknown] tamsulosin [Flomax] 0.4 mg PO DAILY #7 cap 01/22/22 [Rx Last Taken Unknown] ciprofloxacin HCl 500 mg PO BID #6 tablet 03/04/22 [Rx Last Taken Unknown] Allergy/AdvReac Type Severity Reaction Status Date / Time No Known Allergies Allergy Verified 03/04/22 14:09 Social History Smoking Status: Never smoker ROS ROS ED Constitutional Constitutional ED: Reports systems reviewed and no addt'l complaints, except as documented; Denies body ache(s), change in weight or chills Eyes Eyes: Denies acute decrease in peripheral vision, change in vision, double vision or loss of vision ENT ENT ED: Reports none; Denies ear pain, lip swelling, loss taste/smell, neck pain, otalgia or sore throat Cardiovascular Cardiovascular: Reports none; Denies abdominal pain, chest pain with activity, leg edema, lightheadedness, palpitations, rapid heart rate or syncope Respiratory/Chest Respiratory/Chest: Reports none; Denies change in mental status, dry cough, dyspnea, hemoptysis, shortness of breath at rest or shortness of breath with exertion Gastrointestinal Gastrointestinal: Reports none, abdominal pain and nausea; Denies change in stool character, diarrhea, hematemesis, hematochezia, melena, rectal bleeding or vomiting Genitourinary Genitourinary ED: Reports none; Denies abdominal discomfort, anuria, dysuria, genital pain or polyuria Musculoskeletal Musculoskeletal: Reports none and back pain; Denies arthralgias, difficulty walking, extremity pain, muscle weakness or myalgias Integumentary Reports none; Denies abscess or rash Neurologic Neurologic: Reports none; Denies abnormal gait, confusion, focal weakness, frequent falls, headache(s), loss of vision, numbness, paresthesias, radicular pain, vertigo or weakness Psychiatric Psychiatric: Reports systems reviewed and no addt'l complaints, except as documented and none; Denies behavioral changes, confusion, difficulty concentra ting, hallucinations, suicidal ideation, tactile hallucinations or visual hallucinations Endocrine Endocrinology: Denies none, cold intolerance, excessive sweating, fatigue or heat intolerance Hematologic/Lymphatic Hematologic/Lymphatic: Reports none; Denies anemia, easy bleeding or easy bruising Allergic/Immunologic Allergic/Immunologic ED: Denies as per HPI, none, lip swelling, mouth swelling, throat swelling, tongue swelling or hives EXAM Physical Exam Const Vital Signs: 03/04/22 14:09 Temperature 98.9 F Temperature Source Temporal Pulse Rate 92 Respiratory Rate 14 Blood Pressure 173/100 H Blood Pressure Mean 124 Pulse Ox 94 Oxygen Delivery Method Room Air Positive well nourished and well developed General Appearance ED: well developed and NAD HEENT Reports TM's clear and moist mucous membranes normocephalic and atraumatic; Negative for trauma or tenderness Tympanic Membrane ED: Yes TM's clear Eyes PERRL and EOMs intact bilaterally General Eye ED: Negative for pale conjunctiva or scleral icterus Neck no lymphadenopathy, supple and no JVD General: Negative for tenderness Chest Wall inspection of chest normal and palpation of chest normal Chest: Negative for tenderness Resp normal respiratory effort and clear to auscultation bilaterally Effort and Inspection: Negative for respiratory distress or pain with movement Auscultation: Negative for rhonchi, wheezes or diminished lung sounds Cardio regular rate, regular rhythm, S1 normal heart sound, S2 normal heart sound and no murmurs Peripheral Pulses: pulses 2+ throughout GI normal to inspection, nondistended, normoactive bowel sounds, soft to palpation, non-distended and no masses GI Narrative: Tenderness palpation over the right lower quadrant some guarding. There is no rebound, rigidity, peritoneal signs. Back/Spine no thoracic nor lumbar tenderness Back/Spine Narrative: CVA tenderness bilaterally. General Back: CVA tenderness Extremity normal to inspection General Extremety ED: Negative for edema General Extremity: Negative for edema Neuro oriented x3, CN's II-XII intact bilaterally, no sensory deficits noted and gait normal Sensorium / Orientation: awake, alert, oriented to person, oriented to place and oriented to time Motor Exam: strength 5/5 throughout and strength abnormal Psych mental status grossly normal Skin no rashes or lesions noted and no wounds MDM MDM MDM Narrative Medical decision making narrative: IV line established and level. Patient was medicated with Dilaudid, Toradol, and Zofran and had good pain relief with that. Lab work-up was unremarkable. Urinalysis was positive for nitrites as well as 25-50 RBCs and 5-10 WBCs and +2 bacteria. I did send off a culture. Patient did receive 1 dose of ciprofloxacin this morning prior to having his stent removed. I discussed case with Dr. Dow as the CT scan does show 2 mm stone distal right ureter and he believes that patient is passing a fragment. I was asked to send patient home. Patient does have oxycodone for pain and he is at also advised to take some ibuprofen as well. Patient given a prescription for Cipro for 3 days. Patient advised return if worsening pain, fever, vomiting, or condition should worsen anyway. Lab Data Attestation: I reviewed the patient's lab results. Labs: Laboratory Results - last 24 hr 03/04/22 03/04/22 03/04/22 14:25 14:25 15:10 WBC 8.0 RBC 5.31 Hgb 15.9 Hct 46.9 MCV 88.3 MCH 29.9 MCHC 33.9 RDW Std Deviation 40.0 RDW Coeff of Luís 12.3 Plt Count MPV 10.5 Immature Gran % (Auto) 0.400 Neut % (Auto) 78.4 H Lymph % (Auto) 13.8 L Miller % (Auto) 5.0 Eos % (Auto) 2.0 Baso % (Auto) 0.4 Absolute Neuts (auto) 6.2 Absolute Lymphs (auto) 1.10 Nucleated RBC % 0 Platelet Estimate ADEQUATE Sodium 139 Potassium 3.8 Chloride 106 Carbon Dioxide 25.0 Anion Gap 8 BUN 21 H Creatinine 1.41 H Estim Creat Clear Calc 56.37 Est GFR (MDRD) Af Amer 65 Est GFR (MDRD) Non-Af 54 L BUN/Creatinine Ratio 14.9 Glucose 112 H Calcium 8.9 Urine Color SEE COMMENT BELOW Urine Clarity Clear Urine pH 5.0 Ur Specific [place] 1.025 Urine Protein 30 H Urine Glucose (UA) Normal Urine Ketones Negative Urine Occult Blood 250 H Urine Nitrite Positive H Urine Bilirubin 3 H Urine Urobilinogen 4 H Ur Leukocyte Esterase Negative Urine RBC 25-50 SEEN Urine WBC 5-10 SEEN Ur Squamous Epith Cells 0-5 SEEN Urine Bacteria 2+ Urine Mucus 0 SEEN Radiography Diagnostic Testing: Clinical Impression(s) from Imaging Studies Abdomen/Pelvis CT 03/04/22 14:16 IMPRESSION: 1. Mild right hydronephrosis with distal (previously mid) right ureter calculus, measuring 2 mm. 2. Fragmentation of right renal calculi as prior CT. Electronically Signed: Jamie Rosales MD (Brooks) at 15:11 EDT Reading Location ID and State: [address] [place] [address] , Service support , Discharge Plan Triage Chief Complaint: Abd Pain ED Provider: Clarissa Rogers Dx/Rx/DC Orders Clinical Impression: Right ureteral calculus Instructions: ED Kidney Stone w/ Colic Prescriptions: New ciprofloxacin HCl [ciprofloxacin HCl] 500 MG tablet 500 mg PO BID Qty: 6 RF: 0 No Action tamsulosin 0.4 MG capsule 0.4 mg PO DAILY 7 Days RF: 0 pravastatin 80 MG tablet 80 mg PO QHS RF: 0 febuxostat [Uloric] 40 MG tablet 40 mg PO DAILY RF: 0 levofloxacin [Levaquin] 500 MG tablet 500 mg PO DAILY Qty: 7 RF: 0 hydrocodone-acetaminophen 1 TABLET tablet 1 - 2 tab PO Q4H PRN PRN (Reason: Pain) Qty: 20 RF: 0 amlodipine 10 MG tablet 10 mg PO DAILY Qty: 60 RF: 0 diazepam 5 MG tablet 5 - 10 mg PO 4X/DAY PRN PRN (Reason: back pain/muscle spasm) Qty: 30 RF: 0 oxycodone-acetaminophen [Percocet] 5-325 mg tablet 1 tab PO Q6H PRN (Reason: pain) 3 Days Qty: 12 RF: 0 ondansetron 4 mg tablet,disintegrating 4 mg PO Q6H PRN (Reason: nausea and vomiting) Qty: 10 RF: 0 tamsulosin [Flomax] 0.4 mg capsule 0.4 mg PO DAILY Qty: 7 RF: 0 Primary Care Provider: Madhav Weston Chi Referrals: Leon Dow MD [STAFF PHYSICIAN] - As Needed Madhav Weston Chi, MD [Primary Care Provider] - Disposition Disposition: Home, Self Care
[2022-03-04] MEDS: Ondansetron 4 MG/2 ML Vial IV (14:31)
[2022-03-04] MEDS: Ketorolac 15 MG/ML Vial IV (14:31)
[2022-03-04] MEDS: HYDROmorphone 1 MG/ML Syringe IV ×2 (14:31→15:59)
[2022-03-04] MEDS: 0.9% Normal Saline 1,000 ML 125 ML IV (14:32)
[2022-03-04 14:36] LABS: Absolute Neutrophil Count 6.2 X10^3/uL (2.0-7.7); Basophil# 0.03 X10^3/uL; Basophil% 0.4 % (0-1); Eosinophil# 0.16 X10^3/uL; Hematocrit 46.9 % (40-54); Hemoglobin 15.9 g/dL (13.0-16.5); Lymphocyte % 13.8 % (19-41); Mean Corp Hgb Conc 33.9 g/dL (32-36); Mean Corpuscular Hgb 29.9 pg (27.0-32.0); Mean Corpuscular Volume 88.3 fL (80-94); Mean Platelet Vol. 10.5 fl (6.2-12.0); NRBC Flagged by Analyzer 0 % (0-5); Neutrophil # 6.23 X10^3/uL (2.7-7.7); Neutrophil % 78.4 % (47-70); POSITIVE COUNT YES; RBC Distribution Width CV 12.3 % (11.6-14.6); Red Blood Count 5.31 M/mm3 (4.6-6.2)
[2022-03-04 14:49] LABS: Anion Gap 8 (5-15); BUN 21 mg/dL (7-18); BUN/Creat Ratio 14.9 RATIO (10-20); Calcium,Total 8.9 mg/dL (8.5-10.1); Chloride 106 mmol/L (98-107); Creatinine, Serum 1.41 mg/dL (0.70-1.30); EST Glomerular Filtration Rate 54 mL/min (>60); Est Glom Filt Rate - Afr Amer 65 mL/min (>60); Estimated Creatinine Clearance 56.37 ml/min; Glucose 112 mg/dL (74-106); Potassium 3.8 mmol/L (3.5-5.1); Sodium Level 139 mmol/L (136-145)
[2022-03-04 15:02] LABS: Differential Indicated SCAN CRITERIA MET
[2022-03-04 15:03] LABS: Platelet Estimate ADEQUATE (ADEQ)
[2022-03-04 15:21] LABS: Mucous, Urine 0 SEEN /hpf (<or=2+)
[2022-03-04 15:26] LABS: Glucose, Dipstick Normal (Normal); Ketone-Dipstick Negative (Negative); Leukocyte Esterase-Dipstick Negative /ul (Negative); Nitrite-Dipstick Positive (Negative); Occult Blood-Urine 250 /ul (Negative); Protein-Dipstick 30 mg/dl (Negative); Specific Gravity, Urine 1.025 (1.002-1.030); Urine Clarity Clear (Clear); Urine Urobilinogen 4 mg/dl (Normal)
[2022-03-04 15:43] LABS: Color, Urine SEE COMMENT BELOW (Yellow); Urine Bilirubin Dipstick 3 mg/dL (Negative)
[2022-03-04 15:46] LABS: Bacteria 2+ /hpf (None Seen); Red Blood Cells-Urine 25-50 SEEN /hpf (0-5); Squamous Epithelial Cells - UA 0-5 SEEN /hpf (0-5); White Blood Cells 5-10 SEEN /hpf (0-5)
[2022-03-04 15:53] VITALS: RESP 16; O2SAT 99
[2022-03-04 15:58] VITALS: BP 136/84; PULSE 71; RESP 16; O2SAT 99
== END 2022-03-04 16:06 | disposition home or self-care (01) ==
PROVIDERS: Emergency Provider Emergency Medicine; PCP Family Medicine Geriatric Medicine; Visit Provider Emergency Medicine
DX: N13.2 Hydronephrosis with renal and ureteral calculous obstruction (principal); I10 Essential (primary) hypertension; M54.9 Dorsalgia, unspecified; R10.9 Unspecified abdominal pain; Z87.442 Personal history of urinary calculi
CPT/HCPCS: 74176; 80048; 81001; 85025; 87086; 96361; 96374; 96375; 96376; 99283; J7030; J2405

== ENCOUNTER → 2022-03-04 | Outpatient (CLI) | payer OTHER, SELFPAY ==
--- NOTE | 2022-03-04 08:04 | RAD_ITS ---
INDICATION: CALCULUS OF KIDNEY EXAMINATION/TECHNIQUE: X-RAY - XR Abdomen 1 View COMPARISON: CT abdomen/pelvis from 01/22/2022 FINDINGS: There is a right-sided double-J nephroureteral stent with the tips appearing to be in appropriate position. There is a 3 mm calcific density within the expected location of the right upper pole likely a right renal calculus. There are no other right renal calculi identified. There are no left renal calculi identified. No other radiopaque foreign bodies. Nonobstructive bowel gas pattern. Visualized bones and soft tissues are unremarkable. RAD/Abdomen Single View IMPRESSION: 1. Likely 3 mm calculus within the right upper pole. No other bilateral renal calculi are identified. 2. Right-sided double-J nephroureteral stent appears in appropriate position. Electronically Signed: Tariq Dickens, at 10:50 EDT ,
== END | disposition home or self-care (01) ==
LOC: RAD 08:03
PROVIDERS: PCP Family Medicine Geriatric Medicine; Visit Provider Urology
DX: N20.0 Calculus of kidney (principal)
CPT/HCPCS: 74018

== ENCOUNTER 2022-03-05 10:24 | Day surgery (SDC) | payer OTHER, SELFPAY ==
[2022-03-05] VITALS (12 sets, daily range): BP systolic 120–143; BP diastolic 65–99; PULSE 69–99; RESP 16–22; TEMP 36.2–37.3; O2SAT 92–97; BMI 35.6
[2022-03-05] MEDS: Ondansetron 4 MG/2 ML Vial IV (10:50)
[2022-03-05] MEDS: 0.9% Normal Saline 1,000 ML 150 ML IV (10:50)
[2022-03-05] MEDS: morphine 8 MG/ML Syringe IV (10:50)
--- NOTE | 2022-03-05 10:50 | EX.ED.DYSGE1 ---
HPI History of Present Illness Chief Complaint: Flank Pain Detail of Chief Complaint: Right flank pain due to obstructing 2 mm ureteral stone Informant: patient and spouse/S.O. Onset/Context/Timing Onset: Today (829) Context: Sudden Onset Timing: Continuous and Waxes and wanes Quality: Pain Location: Right flank and anterior right lower abdomen Current Severity: Severe Maximum Severity: Severe Worsened by: Nothing Relieved by: Nothing Associated Symptoms Associated Symptoms: Urgency Narrative Narrative: Patient is a 66-year-old male who was seen yesterday. He is status post lithotripsy of 1 cm stone. Stent was removed yesterday. He presented because of severe pain. He was found to have a 2 mm distal right ureteral stone with mild hydronephrosis and hydroureter. Patient did have gross hematuria yesterday. This has resolved. Patient denies fever or chills. Patient reports increased urination because he has had 20 pints of water since last night. He denies dysuria or hematuria. He denies testicular pain, swelling of the scrotum or testicle. Prior similar symptoms: Yes Recent Illness/Hospitalization: Yes PFSH PFSH Medical History Hypertension Kidney stone Home Medications febuxostat [Uloric] 40 mg PO DAILY 03/22/15 [History Last Taken 03/24/15 08:00] pravastatin 80 mg PO QHS 03/22/15 [History Last Taken 03/23/15 22:00] hydrocodone-acetaminophen 1 - 2 tab PO Q4H PRN PRN #20 tablet 03/24/15 [Rx Last Taken 03/24/15 14:45 2] ciprofloxacin HCl 500 mg PO BID #6 tablet 03/04/22 [Rx Last Taken Unknown] losartan 100 mg PO DAILY 03/05/22 [History Last Taken Unknown] metoprolol tartrate 12.5 mg PO BID 03/05/22 [History Last Taken Unknown] Allergy/AdvReac Type Severity Reaction Status Date / Time No Known Allergies Allergy Verified 03/05/22 10:26 Social History (Updated 03/05/22 @ 10:[address] Oswald Boyd MD) household members: spouse Smoking Status: Never smoker substance use type: does not use ROS ROS ED Constitutional Constitutional ED: Denies chills, fever(s), subjective, sweats or weight loss Eyes Eyes: Denies blurry vision or change in vision ENT ENT ED: Denies ear pain, rhinorrhea or sore throat Cardiovascular Cardiovascular: Denies chest pain, orthopnea or palpitations Respiratory/Chest Respiratory/Chest: Denies cough, dyspnea, dyspnea on exertion or orthopnea Gastrointestinal Gastrointestinal: Reports abdominal pain and nausea; Denies diarrhea, melena or vomiting Genitourinary Genitourinary ED: Reports urinary frequency; Denies dysuria or hematuria Musculoskeletal Musculoskeletal: Reports back pain; Denies arthralgias, myalgias or neck pain Integumentary Denies rash Neurologic Neurologic: Denies headache(s) or weakness Endocrine Endocrinology: Denies polydipsia, polyphagia or polyuria EXAM Physical Exam Const Vital Signs: 03/05/22 10:26 03/05/22 10:55 03/05/22 13:27 Temperature 97.1 F L Temperature Source Temporal Pulse Rate 82 73 69 Respiratory Rate 22 H 16 Blood Pressure 143/99 H 139/82 H 120/70 Blood Pressure Mean 113 101 86 Pulse Ox 97 95 94 Oxygen Delivery Method Room Air Room Air Room Air Positive well nourished, well developed and obese General Appearance ED: well developed and other Patient is in obvious discomfort. He is pacing. He is tachypneic. ; Negative for cyanotic, diaphoretic, NAD or pallor Nutritional Appearance: obese HEENT Reports moist mucous membranes HEENT Narrative: Ears normal. Nares patent. Negative for trauma or tenderness Eyes PERRL and EOMs intact bilaterally General Eye ED: Negative for pale conjunctiva or scleral icterus Neck no lymphadenopathy, supple and no JVD Resp normal respiratory effort and clear to auscultation bilaterally Effort and Inspection: Negative for pain with movement Cardio regular rate, regular rhythm, S1 normal heart sound, S2 normal heart sound and no murmurs GI normal to inspection, nondistended, normoactive bowel sounds, non-tender and non-distended Back/Spine no CVA tenderness Cervical Spine: Negative for cervical spine tenderness Thoracic Spine / Upper Back: Negative for paraspinal muscle tenderness Neuro oriented x3, CN's II-XII intact bilaterally and no sensory deficits noted Sensorium / Orientation: alert Psych mental status grossly normal Skin no rashes or lesions noted and no wounds General Skin Exam: Negative for jaundice or pallor MDM MDM MDM Narrative Medical decision making narrative: Patient presents because of pain due to obstructing 2 mm distal right ureteral stone. Will obtain UA to evaluate for infection and specific gravity. Basic metabolic panel was obtained because of concern for hyponatremia due to large consumption of water since last night. He was medicated with 8 mg of morphine for his pain and 4 mg of Zofran for his nausea. Since he has had a rise in his creatinine with a GFR far less than 60 he did not receive IV Toradol. Case with discussed with Dr. Dow. Plan is OR for stent placement and disposition from OR Lab Data Labs: Laboratory Results - last 24 hr 03/05/22 03/05/22 10:40 11:00 Sodium 134 L Potassium 3.8 Chloride 102 Carbon Dioxide 24.0 Anion Gap 8 BUN 26 H Creatinine 1.58 H Estim Creat Clear Calc 50.31 Est GFR (MDRD) Af Amer 57 L Est GFR (MDRD) Non-Af 47 L BUN/Creatinine Ratio 16.5 Glucose 111 H Calcium 8.6 Urine Color Yellow Urine Clarity Clear Urine pH 6.0 Ur Specific [place] 1.010 Urine Protein Negative Urine Glucose (UA) Normal Urine Ketones Negative Urine Occult Blood 150 H Urine Nitrite Negative Urine Bilirubin Negative Urine Urobilinogen Normal Ur Leukocyte Esterase Negative Urine RBC 0 SEEN Urine WBC 0 SEEN Ur Squamous Epith Cells 0 SEEN Urine Bacteria 0 SEEN Urine Mucus 0 SEEN Discharge Plan Triage Chief Complaint: Flank Pain ED Provider: Oswald Boyd Dx/Rx/DC Orders Clinical Impression: Hydronephrosis with urinary obstruction due to ureteral calculus Primary Care Provider: Madhav Weston Chi Disposition Disposition: Acute Care [facility]
[2022-03-05 10:51] LABS: Bacteria 0 SEEN /hpf (None Seen); Mucous, Urine 0 SEEN /hpf (<or=2+); Red Blood Cells-Urine 0 SEEN /hpf (0-5); Squamous Epithelial Cells - UA 0 SEEN /hpf (0-5); White Blood Cells 0 SEEN /hpf (0-5)
[2022-03-05 10:56] LABS: Color, Urine Yellow (Yellow); Glucose, Dipstick Normal (Normal); Ketone-Dipstick Negative (Negative); Leukocyte Esterase-Dipstick Negative /ul (Negative); Nitrite-Dipstick Negative (Negative); Occult Blood-Urine 150 /ul (Negative); Protein-Dipstick Negative (Negative); Urine Bilirubin Dipstick Negative (Negative); Urine Clarity Clear (Clear); Urine Urobilinogen Normal (Normal)
[2022-03-05 11:20] LABS: Anion Gap 8 (5-15); BUN 26 mg/dL (7-18); BUN/Creat Ratio 16.5 RATIO (10-20); Calcium,Total 8.6 mg/dL (8.5-10.1); Chloride 102 mmol/L (98-107); Creatinine, Serum 1.58 mg/dL (0.70-1.30); EST Glomerular Filtration Rate 47 mL/min (>60); Est Glom Filt Rate - Afr Amer 57 mL/min (>60); Estimated Creatinine Clearance 50.31 ml/min; Glucose 111 mg/dL (74-106); Potassium 3.8 mmol/L (3.5-5.1); Sodium Level 134 mmol/L (136-145)
[2022-03-05] MEDS: Lactated Ringers 1,000 ML 100 ML IV (15:00)
[2022-03-05] MEDS: Cefazolin 2 GM in 0.9% Normal Saline 100 ML IV (15:13)
--- NOTE | 2022-03-05 15:45 | OP.PCM_ITS ---
Report of Operation Date of Procedure: 03/05/22 Pre-Operative Diagnosis: Right renal colic severe pain in the right side status post ureteroscopy a week ago. Post-Operative Diagnosis: Same Surgery/Procedure Performed:: Cystoscopy, balloon dilation of the right ureter, right ureteroscopy diagnostic, retrograde pyelogram interpretation fluoroscopic images, and right stent placement Description of Surgical Findings:: Indication this is a 66-year-old male underwent treatment of a large stone in the right kidney and I took out the stent earlier this week he initially presented to the emergency room yesterday with severe renal colic CAT scan was done that demonstrated a small stone in the distal right ureter pain was relieved then he went home then he came back again to the emergency room in severe pain again and this time he was admitted to the hospital a regular proceed with right ureteroscopy and possible stent placement and laser if I find any stones that need to be treated. Patient was taken back to the operating room after smooth induction of general anesthesia he was placed in dorsolithotomy position. The penis testicles were prepped and draped in usual sterile fashion went of the bladder with a 21 Icelandic rigid cystourethroscope inside the bladder the found the right ureter orifice was somewhat inflamed and swollen I then put a wire up through the ureter I did not get any E flux of urine or debris I then advanced a balloon dilator and stretch the distal ureter with a 12 Icelandic balloon dilator left the wire in place and next to the wire went in with a SlimLine rigid ureteroscope once I got in the distal ureter there was a tiny jude of a stone in the distal ureter this was dislodged free and then I went up as far as possible with a SlimLine ureteroscope and I did not see any obstructing stones along the course of the ureter under fluoroscopy I did identify some stones in the right kidney that were broken fragments from prior treatment but I could not reach with the ureteroscope. So I left the ureteroscope pulled it out but the wire in place and then over this we confirm location and retrograde was performed and images interpreted and stones were still visible in the right kidney. I then placed a stent on the right side we can talk about the options of treating these fragments up in the right kidney with shockwave lithotripsy or just pulling the stent out and see if he can pass these fragments. Patient anesthetic was reversed and he will go home today with pain medicine antibiotics. At the end of the case I drained the bladder removed the scope the stent was in good position and he will go home follow-up next week with a KUB. Surgeon: shady Type of Anesthesia: General Drains: stent right side Admit VTE Documentation VTE Present on Admission: No VTE Mechan Device Prophylaxis: SCD's VTE Pharm Prophylaxis ordered?: No
--- NOTE | 2022-03-05 15:45 | PCM.HP.STD ---
HPI - General HPI Narrative DORIS RANKIN, is a 66 M who presents for treatment of a small stone in the distal right ureter causing obstruction today we will proceed with intervention he has been in the emergency room with severe pain PFSH Medical History Hypertension Kidney stone Home Medications febuxostat [Uloric] 40 mg PO DAILY 03/22/15 [History Last Taken 03/24/15 08:00] pravastatin 80 mg PO QHS 03/22/15 [History Last Taken 03/23/15 22:00] hydrocodone-acetaminophen 1 - 2 tab PO Q4H PRN PRN #20 tablet 03/24/15 [Rx Last Taken 03/24/15 14:45 2] ciprofloxacin HCl 500 mg PO BID #6 tablet 03/04/22 [Rx Last Taken Unknown] ciprofloxacin HCl [Cipro] 500 mg PO BID #10 tab 03/05/22 [Rx Last Taken Unknown] losartan 100 mg PO DAILY 03/05/22 [History Last Taken Unknown] metoprolol tartrate 12.5 mg PO BID 03/05/22 [History Last Taken Unknown] oxycodone-acetaminophen 1 tab PO Q6H PRN 7 Days #10 tab 03/05/22 [Rx Last Taken Unknown] Allergy/AdvReac Type Severity Reaction Status Date / Time No Known Allergies Allergy Verified 03/05/22 10:26 Social History (Updated 03/05/22 @ 10:[address] Oswald Boyd MD) household members: spouse Smoking Status: Never smoker substance use type: does not use Vital Signs Vital Signs Vital Signs: 03/05/22 10:26 03/05/22 10:55 03/05/22 13:27 Temperature 97.1 F L Temperature Source Temporal Pulse Rate 82 73 69 Respiratory Rate 22 H 16 Blood Pressure 143/99 H 139/82 H 120/70 Blood Pressure Mean 113 101 86 Blood Pressure Source Blood Pressure Position Blood Pressure Location Pulse Ox 97 95 94 Oxygen Delivery Method Room Air Room Air Room Air 03/05/22 13:28 03/05/22 14:07 Temperature 97.1 F L Temperature Source Temporal Pulse Rate 69 69 Respiratory Rate 16 16 Blood Pressure 120/70 120/70 Blood Pressure Mean 86 86 Blood Pressure Source Monitor Blood Pressure Position Supine Blood Pressure Location Right Arm Pulse Ox 96 96 Oxygen Delivery Method Room Air Room Air Weight Weight: 115.7 kg Body Mass Index (BMI) 35.6 Results Lab / Micro Data Result Diagrams: 03/05/22 11:00 03/05/22 11:00 Labs: Laboratory Results - last 24 hr 03/05/22 10:40: Urine Color Yellow, Urine Clarity Clear, Urine pH 6.0, Ur Specific [place] 1.010, Urine Protein Negative, Urine Glucose (UA) Normal, Urine Ketones Negative, Urine Occult Blood 150 H, Urine Nitrite Negative, Urine Bilirubin Negative, Urine Urobilinogen Normal, Ur Leukocyte Esterase Negative, Urine RBC 0 SEEN, Urine WBC 0 SEEN, Ur Squamous Epith Cells 0 SEEN, Urine Bacteria 0 SEEN, Urine Mucus 0 SEEN 03/05/22 11:00: Sodium 134 L, Potassium 3.8, Chloride 102, Carbon Dioxide 24.0, Anion Gap 8, BUN 26 H, Creatinine 1.58 H, Estim Creat Clear Calc 50.31, Est GFR (MDRD) Af Amer 57 L, Est GFR (MDRD) Non-Af 47 L, BUN/Creatinine Ratio 16.5, Glucose 111 H, Calcium 8.6
--- NOTE | 2022-03-05 15:45 | PCM.DC ---
Discharge Instructions Diet Discharge Diet: No restrictions Activity Discharge Activity: Return to Normal Activity and May Not Drive (while taking narcotic pain medications.) Dressing / Incision Call your doctor if you observe: Fever of 101 or Higher Follow Up Care Please Follow Up With: Leon Dow MD When: Call [phone] for an appointment Test Results: Test results from this visit will be discussed in further detail at your follow-up appointment, if applicable. Discharge Plan Admission Primary Reason for Your Visit: stent placement Attending Provider: Leon Dow Primary Care Provider: Madhav Weston Chi Discharge Orders/Prescriptions Prescriptions: New ciprofloxacin HCl [Cipro] 500 mg tablet 500 mg PO BID Qty: 10 RF: 0 oxycodone-acetaminophen 5-325 mg tablet 1 tab PO Q6H PRN (Reason: pain) 7 Days Qty: 10 RF: 0 Continued pravastatin 80 MG tablet 80 mg PO QHS RF: 0 febuxostat [Uloric] 40 MG tablet 40 mg PO DAILY RF: 0 hydrocodone-acetaminophen 1 TABLET tablet 1 - 2 tab PO Q4H PRN PRN (Reason: Pain) Qty: 20 RF: 0 ciprofloxacin HCl 500 MG tablet 500 mg PO BID Qty: 6 RF: 0 losartan 100 mg tablet 100 mg PO DAILY RF: 0 metoprolol tartrate 25 mg tablet 12.5 mg PO BID RF: 0 Referrals / Follow Up: Leon Dow MD [STAFF PHYSICIAN] - Madhav Weston Chi, MD [Primary Care Provider] - Disposition Disposition (needs filled in before D/C Order can be placed): Home, Self Care
== END 2022-03-05 17:42 | disposition home or self-care (01) ==
LOC: ED 13:05 → SDC 13:24
PROVIDERS: Emergency Provider Emergency Medicine; PCP Family Medicine Geriatric Medicine; Visit Provider Urology
PROC: (CPT 52332; principal; 2022-03-05 15:25)
DX: N13.2 Hydronephrosis with renal and ureteral calculous obstruction (principal); N13.4 Hydroureter; I10 Essential (primary) hypertension; E66.9 Obesity, unspecified; Z68.35 Body mass index [BMI] 35.0-35.9, adult; Z79.899 Other long term (current) drug therapy; Z87.442 Personal history of urinary calculi
CPT/HCPCS: 52332; 76000; 80048; 81001; 99284; J7030; J7120; A4216; C1769; C2617; J2405

== ENCOUNTER 2022-03-06 23:54 | Inpatient (IN) | payer OTHER, SELFPAY ==
[2022-03-06 23:54] VITALS: BP 165/80; PULSE 92; RESP 18; TEMP 36.7; O2SAT 99; BMI 35.4
[2022-03-07] VITALS (11 sets, daily range): BP systolic 117–169; BP diastolic 73–97; PULSE 71–93; RESP 15–20; TEMP 36.7–37; O2SAT 91–98; BMI 36.1; BMI 35.9
--- NOTE | 2022-03-07 00:05 | EX.ED.GUMALE ---
HPI History of Present Illness Chief Complaint: Flank Pain Informant: patient and spouse/S.O. Narrative Narrative: Presenting with left flank pain rating around left side since yesterday evening. Nausea with dry heaving. No urinary symptoms. History of multiple kidney stones. No seen by myself last month on the for right 3 mm mid ureteral stone. He follow-up with Dr. Dow which she seen previously had a ureteral stent removed. No in records seen 2 days ago increasing pain had fragments stone at 2 mm distal ureter. Discharged home on Cipro with concerns for UTI. Returned yesterday increasing pain stent was placed yesterday with improved symptoms. Urine culture review reviewed from 2 days ago negative. States was doing well on the right side. However left side started yesterday evening. He has hydrocodone however leftover oxycodone also for which he took at 8 PM with no relief. Review of records from imagings he does note to have a 4 mm nephrolithiasis on the left side from the scan report back in January. History of CKD. Prior similar symptoms: Yes PFSH PFSH Medical History Hypertension Kidney stone Home Medications febuxostat [Uloric] 40 mg PO DAILY 03/22/15 [History Last Taken 03/24/15 08:00] pravastatin 80 mg PO QHS 03/22/15 [History Last Taken 03/23/15 22:00] hydrocodone-acetaminophen 1 - 2 tab PO Q4H PRN PRN #20 tablet 03/24/15 [Rx Last Taken 03/24/15 14:45 2] ciprofloxacin HCl [Cipro] 500 mg PO BID #10 tab 03/05/22 [Rx Last Taken Unknown] losartan 100 mg PO DAILY 03/05/22 [History Last Taken Unknown] metoprolol tartrate 12.5 mg PO BID 03/05/22 [History Last Taken Unknown] oxycodone-acetaminophen 1 tab PO Q6H PRN 7 Days #10 tab 03/05/22 [Rx Last Taken Unknown] Allergy/AdvReac Type Severity Reaction Status Date / Time No Known Allergies Allergy Verified 03/07/22 00:00 Social History household members: spouse Smoking Status: Never smoker substance use type: does not use ROS ROS ED Constitutional Constitutional ED: Denies chills, fever(s) or sweats Eyes Eyes: Denies change in vision ENT ENT ED: Denies dysphagia or sore throat Cardiovascular Cardiovascular: Denies chest pain, leg edema, palpitations or racing heartbeat Respiratory/Chest Respiratory/Chest: Denies cough, dyspnea or dyspnea on exertion Gastrointestinal Gastrointestinal: Reports nausea and vomiting; Denies abdominal pain or diarrhea Genitourinary Genitourinary ED: Denies dysuria, hematuria or urinary frequency Musculoskeletal Musculoskeletal: Reports back pain; Denies extremity pain or neck pain Integumentary Denies rash or wounds Neurologic Neurologic: Denies headache(s), paresthesias or weakness EXAM Physical Exam Const Vital Signs: 03/06/22 23:54 03/07/22 00:49 Temperature 98.1 F 98.1 F Temperature Source Temporal Temporal Pulse Rate 92 90 Respiratory Rate 18 15 Blood Pressure 165/80 H 165/80 H Blood Pressure Mean 108 108 Pulse Ox 99 98 Oxygen Delivery Method Room Air Room Air Positive well nourished and well developed Constitutional Narrative: Uncomfortable, nontoxic General Appearance ED: well developed HEENT Reports moist mucous membranes normocephalic and atraumatic Eyes PERRL, EOMs intact bilaterally and conjunctivae normal General Eye ED: Yes normal appearance of both eyes Neck no lymphadenopathy and supple General: Negative for tenderness Chest Wall Chest: Negative for tenderness Resp normal respiratory effort and normal air movement Effort and Inspection: symmetric chest movement; Negative for respiratory distress Cardio regular rate, regular rhythm and no murmurs Peripheral Pulses: pulses 2+ throughout GI normal to inspection, nondistended, normoactive bowel sounds GI Narrative: LLQ tenderness on exam. No guarding or rebound. Palpation: Negative for guarding or rebound tenderness present Negative for no CVA tenderness Back/Spine no CVA tenderness and no thoracic nor lumbar tenderness Extremity normal to inspection General Extremety ED: Negative for edema or tenderness General Extremity: Negative for edema Neuro oriented x3 and no sensory deficits noted Sensorium / Orientation: awake and alert Skin no rashes or lesions noted and no wounds MDM MDM MDM Narrative Medical decision making narrative: Patient uncomfortable nontoxic. Ureteral stent placed in the right side yesterday however since then left-sided renal colic symptoms. Labs were drawn, after review of CT images previously had a 4 mm left nephrolithiasis. Discussed concerns for migration of the stone distally. Discussed repeat imagings which he agrees. He was given Dilaudid and Zofran NSAIDs avoided due to known history of CKD. On my wet review concerns for a proximal stone with hydronephrosis. With known 4 mm stone with intervention needing on his right side with a 2 mm stone I did speak with his urologist Dr. Dow who will admit to monitor overnight. His urine was still pending. White count did return at 10.7. 0100: Final CT read per radiology notes a 6 mm proximal stone with hydronephrosis. Right ureteral stent is in place. Patient's pain was well controlled at this time. Patient updated on the findings. 0111: Renal function returned creatinine 1.97 up from 1.6 previously. He was given IV fluids. Urine results brown and cloudy positive for blood positive leukocytes WBCs 5-10 with bacteria there was no epithelials. Culture sent. I did start him on IV Rocephin. Patient's nontoxic currently. He is admitted to the medical floor. Lab Data Attestation: I reviewed the patient's lab results. Labs: Laboratory Results - last 24 hr 03/07/22 03/07/22 03/07/22 00:04 00:04 00:44 WBC 10.7 RBC 4.91 Hgb 14.5 Hct 43.0 MCV 87.6 MCH 29.5 MCHC 33.7 RDW Std Deviation 40.0 RDW Coeff of Luís 12.5 Plt Count 291 MPV 9.4 Immature Gran % (Auto) 0.300 Neut % (Auto) 78.9 H Lymph % (Auto) 13.3 L [place] % (Auto) 6.8 Eos % (Auto) 0.5 Baso % (Auto) 0.2 Absolute Neuts (auto) 8.5 H Absolute Lymphs (auto) 1.43 Nucleated RBC % 0 Sodium 141 Potassium 3.5 Chloride 108 H Carbon Dioxide 23.0 Anion Gap 10 BUN 28 H Creatinine 1.97 H Estim Creat Clear Calc 40.35 Est GFR (MDRD) Af Amer 44 L Est GFR (MDRD) Non-Af 37 L BUN/Creatinine Ratio 14.2 Glucose 134 H Calcium 8.9 Total Bilirubin 0.50 AST 9 L ALT 16 Alkaline Phosphatase 49 Total Protein 7.2 Albumin 3.8 Globulin 3.4 Albumin/Globulin Ratio 1.1 Lipase 191 Urine Color Brown Urine Clarity Cloudy Urine pH 5.0 Ur Specific [place] 1.025 Urine Protein 100 H Urine Glucose (UA) Normal Urine Ketones 5 H Urine Occult Blood 250 H Urine Nitrite Negative Urine Bilirubin Negative Urine Urobilinogen 1 H Ur Leukocyte Esterase 100 H Urine RBC > 100 SEEN Urine WBC 5-10 SEEN Ur Squamous Epith Cells 0 SEEN Amorphous Sediment 2+ Urine Bacteria 2+ Urine Mucus 0 SEEN Urine Yeast RARE Radiography Diagnostic Testing: Clinical Impression(s) from Imaging Studies Abdomen/Pelvis CT 03/07/22 00:11 IMPRESSION: 1. Obstruction of the left collecting system due to a 6 mm stone in the proximal ureter. There is left-sided hydronephrosis. 2. Right-sided ureteral stent in place. There are nonobstructing right calyceal stones present. Electronically Signed: Kirill Herbert MD at 0:55 EDT , Discharge Plan Dx/Rx/DC Orders Clinical Impression: Urolithiasis, Hydronephrosis, CKD (chronic kidney disease), Renal colic on left side, Acute on chronic renal insufficiency, Acute UTI Disposition Disposition: Acute Care Hospital [facility] Discharge Date/Time: 03/07/22 01:31
[2022-03-07] MEDS: HYDROmorphone 1 MG/ML Syringe IV (00:07)
[2022-03-07] MEDS: Ondansetron 4 MG/2 ML Vial IV ×2 (00:07→07:28)
[2022-03-07] MEDS: 0.9% Normal Saline 1,000 ML 1000 ML IV (00:07)
--- NOTE | 2022-03-07 00:11 | CT_ITS ---
EXAM: CT ABDOMEN AND PELVIS WITHOUT INTRAVENOUS CONTRAST CLINICAL INDICATION: left flank pain TECHNIQUE: Helically acquired images were obtained of the abdomen and pelvis without intravenous contrast. This CT exam was performed using one or more of the following dose reduction techniques: automated exposure control, adjustment of the mA and/or kV according to patient size, and/or use of iterative reconstruction technique. This report was created using [employer] report generation technology. COMPARISON: 03/04/2022 FINDINGS: LOWER THORAX: Unremarkable. Lung bases are clear. No cardiomegaly. No significant pericardial effusion. ABDOMEN: LIVER: Unremarkable. Homogeneous. GALLBLADDER AND BILE DUCTS: Unremarkable. No calcified gallstones. No gallbladder distention or wall edema. No intra- or extrahepatic biliary ductal dilation. PANCREAS: Unremarkable. No focal cystic mass. SPLEEN: Unremarkable. Normal size without focal cystic or solid mass. ADRENALS: Unremarkable. No nodules. KIDNEYS AND URETERS: There is left-sided hydronephrosis. There is a 6 mm stone in the proximal left ureter. Normal renal size and position. STOMACH AND BOWEL: Unremarkable. No stomach or bowel distention. No focal inflammatory change. PELVIS: APPENDIX: No evidence of acute appendicitis. BLADDER: Unremarkable. REPRODUCTIVE: Unremarkable as visualized. No mass. ABDOMEN and PELVIS: INTRAPERITONEAL SPACE: Unremarkable. No ascites or other fluid collection. No free air. BONES/JOINTS: Unremarkable. No suspicious lytic or blastic abnormality. SOFT TISSUES: Unremarkable. No discrete abdominal or pelvic wall hernia. VASCULATURE: Unremarkable. Abdominal aorta is non-dilated. LYMPH NODES: Unremarkable. No enlarged lymph nodes. TUBES, LINES AND DEVICES: A right ureteral stent in place. CT/Abdomen/Pelvis without Cont IMPRESSION: 1. Obstruction of the left collecting system due to a 6 mm stone in the proximal ureter. There is left-sided hydronephrosis. 2. Right-sided ureteral stent in place. There are nonobstructing right calyceal stones present. Electronically Signed: Kirill Herbert MD at 0:55 EDT ,
[2022-03-07 00:12] LABS: Absolute Lymphocyte Count 1.43 X10^3/uL (0.83-4.51); Absolute Neutrophil Count 8.5 X10^3/uL (2.0-7.7); Basophil# 0.02 X10^3/uL; Basophil% 0.2 % (0-1); Eosinophil# 0.05 X10^3/uL; Eosinophils% 0.5 % (0-5); Hemoglobin 14.5 g/dL (13.0-16.5); Lymphocyte # 1.43 X10^3/ul (0.83-4.51); Lymphocyte % 13.3 % (19-41); Mean Corp Hgb Conc 33.7 g/dL (32-36); Mean Corpuscular Hgb 29.5 pg (27.0-32.0); Mean Corpuscular Volume 87.6 fL (80-94); Mean Platelet Vol. 9.4 fl (6.2-12.0); Monocyte# 0.73 X10^3/uL; Monocyte% 6.8 % (0-10); NRBC Flagged by Analyzer 0 % (0-5); Neutrophil # 8.46 X10^3/uL (2.7-7.7); Neutrophil % 78.9 % (47-70); Platelet Count 291 K/mm3 (150-450); RBC Distribution Width CV 12.5 % (11.6-14.6); Red Blood Count 4.91 M/mm3 (4.6-6.2); White Blood Count 10.7 K/mm3 (4.4-11.0)
[2022-03-07 00:49] LABS: Mucous, Urine 0 SEEN /hpf (<or=2+); Squamous Epithelial Cells - UA 0 SEEN /hpf (0-5)
[2022-03-07 00:51] LABS: Color, Urine Brown (Yellow); Glucose, Dipstick Normal (Normal); Ketone-Dipstick 5 mg/dl (Negative); Leukocyte Esterase-Dipstick 100 /ul (Negative); Nitrite-Dipstick Negative (Negative); Occult Blood-Urine 250 /ul (Negative); Protein-Dipstick 100 mg/dl (Negative); Specific Gravity, Urine 1.025 (1.002-1.030); Urine Bilirubin Dipstick Negative (Negative); Urine Clarity Cloudy (Clear); Urine Urobilinogen 1 mg/dl (Normal)
[2022-03-07 01:01] LABS: ALB/GLOB Ratio 1.1 RATIO (0.9-2.4); AST(SGOT) 9 U/L (15-37); Alanine Aminotransfer ALT/SGPT 16 U/L (16-61); Albumin, Serum 3.8 g/dL (3.2-5.0); Alkaline Phosphatase 49 U/L (45-117); Anion Gap 10 (5-15); BUN 28 mg/dL (7-18); BUN/Creat Ratio 14.2 RATIO (10-20); Calcium,Total 8.9 mg/dL (8.5-10.1); Chloride 108 mmol/L (98-107); Creatinine, Serum 1.97 mg/dL (0.70-1.30); EST Glomerular Filtration Rate 37 mL/min (>60); Est Glom Filt Rate - Afr Amer 44 mL/min (>60); Estimated Creatinine Clearance 40.35 ml/min; Globulin 3.4 g/dL (2.2-4.2); Glucose 134 mg/dL (74-106); Lipase 191 U/L (73-393); Potassium 3.5 mmol/L (3.5-5.1); Protein, Total 7.2 g/dL (6.4-8.2); Sodium Level 141 mmol/L (136-145)
--- NOTE | 2022-03-07 01:05 | ED.RN ---
admission orders received over the phone from Dr Dow.
[2022-03-07 01:09] LABS: Amorphous Sediment 2+; Bacteria 2+ /hpf (None Seen); Red Blood Cells-Urine > 100 SEEN /hpf (0-5); White Blood Cells 5-10 SEEN /hpf (0-5); Yeast-Urine RARE /hpf (None Seen)
[2022-03-07] MEDS: Ceftriaxone 1 GM/50 ML BAG IV (01:29)
[2022-03-07] MEDS: 0.9% Saline Lock 10 ML Syringe IV ×2 (03:12→05:28)
[2022-03-07] MEDS: HYDROmorphone 0.5 MG/0.5 ML SYRINGE IV ×4 (03:12→09:51)
--- NOTE | 2022-03-07 04:26 | RAD_ITS ---
EXAM: XR Abdomen 1 View HISTORY: pre surgical TECHNIQUE: XR Abdomen 1 View COMPARISON: None. LIMITATIONS: None. FINDINGS: A right ureteral stent is identified. No small bowel obstruction. No gross free air. RAD/Abdomen Single View (Portable) IMPRESSION: Right ureteral stent. No small bowel obstruction. Electronically Signed: Severiano Rios MD at 5:53 EDT ,
--- NOTE | 2022-03-07 07:12 | HP.PCM_ITS ---
HPI - General General Date of Admission: 03/07/22 HPI Narrative DORIS RANKIN, is a 66 M who presents with severe pain on the left side from a 4 mm proximal stone also has a stent on the right side probably will need right ESWL as well plan to take him admission today for pain control taken the surgery tomorrow for shockwave lithotripsy. PFSH Medical History High cholesterol Hypertension Kidney disease Kidney stone Non-smoker Home Medications febuxostat [Uloric] 40 mg PO DAILY 03/22/15 [History Last Taken 03/24/15 08:00] pravastatin 80 mg PO QHS 03/22/15 [History Last Taken 03/23/15 22:00] hydrocodone-acetaminophen 1 - 2 tab PO Q4H PRN PRN #20 tablet 03/24/15 [Rx Last Taken 03/24/15 14:45 2] ciprofloxacin HCl [Cipro] 500 mg PO BID #10 tab 03/05/22 [Rx Last Taken 03/06/22 21:00] losartan 100 mg PO DAILY 03/05/22 [History Last Taken Unknown] metoprolol tartrate 12.5 mg PO BID 03/05/22 [History Last Taken Unknown] oxycodone-acetaminophen 1 tab PO Q6H PRN 7 Days #10 tab 03/05/22 [Rx Last Taken Unknown] Allergy/AdvReac Type Severity Reaction Status Date / Time No Known Allergies Allergy Verified 03/07/22 00:00 Social History household members: spouse Smoking Status: Never smoker substance use type: does not use Vital Signs Vital Signs Vital Signs: 03/06/22 23:54 03/07/22 00:49 03/07/22 02:07 Temperature 98.1 F 98.1 F 98.6 F Temperature Source Temporal Temporal Oral Pulse Rate 92 90 71 Respiratory Rate 18 15 18 Respiratory Effort Respiratory Depth Respiratory Pattern Blood Pressure 165/80 H 165/80 H 147/80 H Blood Pressure Mean 108 108 102 Blood Pressure Source Monitor Blood Pressure Position Semi-Fowlers Blood Pressure Location Right Arm Pulse Ox 99 98 94 Oxygen Delivery Method Room Air Room Air Room Air 03/07/22 02:29 Temperature Temperature Source Pulse Rate Respiratory Rate Respiratory Effort Normal Respiratory Depth Normal Respiratory Pattern Normal Blood Pressure Blood Pressure Mean Blood Pressure Source Blood Pressure Position Blood Pressure Location Pulse Ox Oxygen Delivery Method Room Air Weight Weight: 117.2 kg Body Mass Index (BMI) 36.1 Results Lab / Micro Data Result Diagrams: 03/07/22 00:04 03/07/22 00:04 Labs: Laboratory Results - last 24 hr 03/07/22 00:04: WBC 10.7, RBC 4.91, Hgb 14.5, Hct 43.0, MCV 87.6, MCH 29.5, MCHC 33.7, RDW Std Deviation 40.0, RDW Coeff of Luís 12.5, Plt Count 291, MPV 9.4, Immature Gran % (Auto) 0.300, Neut % (Auto) 78.9 H, Lymph % (Auto) 13.3 L, [place] % (Auto) 6.8, Eos % (Auto) 0.5, Baso % (Auto) 0.2, Absolute Neuts (auto) 8.5 H, Absolute Lymphs (auto) 1.43, Nucleated RBC % 0 03/07/22 00:04: Sodium 141, Potassium 3.5, Chloride 108 H, Carbon Dioxide 23.0, Anion Gap 10, BUN 28 H, Creatinine 1.97 H, Estim Creat Clear Calc 40.35, Est GFR (MDRD) Af Amer 44 L, Est GFR (MDRD) Non-Af 37 L, BUN/Creatinine Ratio 14.2, Glucose 134 H, Calcium 8.9, Total Bilirubin 0.50, AST 9 L, ALT 16, Alkaline Phosphatase 49, Total Protein 7.2, Albumin 3.8, Globulin 3.4, Albumin/Globulin Ratio 1.1, Lipase 191 03/07/22 00:44: Urine Color Brown, Urine Clarity Cloudy, Urine pH 5.0, Ur Specific [place] 1.025, Urine Protein 100 H, Urine Glucose (UA) Normal, Urine Ketones 5 H, Urine Occult Blood 250 H, Urine Nitrite Negative, Urine Bilirubin Negative, Urine Urobilinogen 1 H, Ur Leukocyte Esterase 100 H, Urine RBC > 100 SEEN, Urine WBC 5-10 SEEN, Ur Squamous Epith Cells 0 SEEN, Amorphous Sediment 2+, Urine Bacteria 2+, Urine Mucus 0 SEEN, Urine Yeast RARE Radiology Impression Abdomen/Pelvis CT 03/07/22 00:11 IMPRESSION: 1. Obstruction of the left collecting system due to a 6 mm stone in the proximal ureter. There is left-sided hydronephrosis. 2. Right-sided ureteral stent in place. There are nonobstructing right calyceal stones present. Electronically Signed: Kirill Herbert MD at 0:55 EDT , KUB X-Ray 03/07/22 04:26 IMPRESSION: Right ureteral stent. No small bowel obstruction. Electronically Signed: Severiano Rios MD at 5:53 EDT ,
[2022-03-07] MEDS: Famotidine 20 MG Tablet PO (07:34)
--- NOTE | 2022-03-07 08:08 | NURSING ---
pt declines signing consent until he speaks with dr caruso
[2022-03-07] MEDS: Ketorolac 30 MG/ML Syringe IV (08:46)
[2022-03-07] MEDS: 0.9% Normal Saline 1,000 ML 50 ML IV (08:51)
--- NOTE | 2022-03-07 13:11 | CASEMGMT ---
RN KIRAN Face to Face with patient for initial transition planning/care coordination assessment. RN CM introduced self and role at [facility]. Patient lying in bed, alert and oriented. Patient willing to participate in assessment and is able to answer all questions appropriately. Care providers, pharmacy, and demographics verified. Patient wishes to discharge home, denies need for home health at this time. Patient states he has no further needs or concerns at this time. CM to follow for discharge planning needs that may arise. PCP: [facility] Specialists: [facility] Pharmacy: [facility] Insurance: MMO Prescription Benefit: yes Living Will/HPOA: none LNOK: Living Arrangements: Patient lives with in a tri-level home with 5 steps and railing between levels. Patient states he is independent and able to ambulate stairs. Transportation: self, DME/HHC: Patient denies DME in the home. No previous HHC. Disposition Plan: Patient to discharge home with family support and follow-up plans in place. Dedra DUBOSE, RN, CM
--- NOTE | 2022-03-07 14:59 | CHAPLAIN ---
Type of Pastoral Visit ___ Initial Visit ___ Follow-up Visit ___ On-call Visit ___ General Patient Visit ___ Spiritual Assessment ___ Family Conference ___ Bereavement ___ Rapid Response ___ Code Blue ___ Other (describe below) Pastoral Care Referral From ___ Patient ___ Family ___ Nurse ___ Physician ___ [employer] ___ Core Analyst ___ Other (describe below) Sacrament/Intervention ___ Active listening ___ Anointing ___ Moravian ___ Bereavement ___ Communion ___ Krysta exploration ___ ___ Life review ___ Prayer ___ Reconciliation ___ Sacrament of Sick ___ Supportive presence ___ Wedding ___ Other (describe below) Pastoral Comments patient and bed are out of the room; calling card left
--- NOTE | 2022-03-07 15:35 | PCM.DC ---
Discharge Instructions Diet Discharge Diet: No restrictions Activity Discharge Activity: Return to Normal Activity and May Not Drive (while taking narcotic pain medications.) Dressing / Incision Call your doctor if you observe: Fever of 101 or Higher Follow Up Care Please Follow Up With: Leon Dow MD When: Call [phone] for an appointment Test Results: Test results from this visit will be discussed in further detail at your follow-up appointment, if applicable. Discharge Plan Admission Admit Date/Time: 03/07/22 01:02 Primary Reason for Your Visit: ESWL Attending Provider: Leon Dow Primary Care Provider: Madhav Weston Chi Instructions Patient Instructions: Shock Wave Lithotripsy Discharge Orders/Prescriptions Prescriptions: Continued pravastatin 80 MG tablet 80 mg PO QHS RF: 0 febuxostat [Uloric] 40 MG tablet 40 mg PO DAILY RF: 0 hydrocodone-acetaminophen 1 TABLET tablet 1 - 2 tab PO Q4H PRN PRN (Reason: Pain) Qty: 20 RF: 0 losartan 100 mg tablet 100 mg PO DAILY RF: 0 metoprolol tartrate 25 mg tablet 12.5 mg PO BID RF: 0 ciprofloxacin HCl [Cipro] 500 mg tablet 500 mg PO BID Qty: 10 RF: 0 oxycodone-acetaminophen 5-325 mg tablet 1 tab PO Q6H PRN (Reason: pain) 7 Days Qty: 10 RF: 0 Referrals / Follow Up: Leon Dow MD [STAFF PHYSICIAN] - Madhav Weston Chi, MD [Primary Care Provider] -
--- NOTE | 2022-03-07 15:36 | PCM.OPRPT ---
Report of Operation Date of Procedure: 03/07/22 Pre-Operative Diagnosis: left proximal ureteral calculi Right renal calculi Post-Operative Diagnosis: same Surgery/Procedure Performed:: cystoscopy and left stent placement and left ESWL Right ESWL Description of Surgical Findings:: Patient presents to the hospital for treatment of a kidney stone with shockwave lithotripsy. In the preoperative area and x-ray was done to confirm the location of the stone. The x-ray was reviewed and the stone location was reviewed. In the preoperative setting I spoke with the patient regarding the treatment of the stone how the treatment would be conducted and the expectations after surgery. The patient understands there is a risk of bleeding and infection. Also discussed the very rare risk of hematoma or damage to the kidney. We also discussed the risk that the shockwave machine will fail to break the stone adequately and that the patient may need other surgical procedures. We also discussed the possibility that the patient may need a stent after the procedure. After reviewing the procedure with the patient, the patient is signed the consent form all the patient's questions were addressed and was taken back to the operating room for treatment of a kidney stone. The urethra and genitals were prepped and draped in usual sterile fashion. Using a 21 Slovenian rigid cystourethroscope the entire length of the urethra was normal then went into the bladder. Identified the trigone the left and right ureteral orifice. I then cannulated the Left orifice and advanced a wire up into the kidney. I then backloaded a 5 Slovenian open ended catheter over the wire and injected contrast to delineate the anatomy. After the retrograde was performed I then used fluoroscopic images and guidance to advanced a wire up into the kidney and over the 0.038 glidewire I advanced a 6 Slovenian by 26 cm double pigtail stent. I then pulled the 0.038 Glidewire off and the stent coiled in the kidney bladder good position. We then used fluoroscopy to identify the stone on the left side where the stent was placed. We then positioned the patient under the lithotripter and we used triangulation technique to identify the location of the stone and then we made sure that the stone was engaged in the F2 focal point of F2 Donier lithoprior machine. Once the patient was positioned appropriately and the stone was identified and placed in the F2 focal point of the lithotripter machine we then proceeded with shockwave lithotripsy. In the beginning the shockwave was delivered at a rate of 90 shocks per minute, we monitor the EKG for any ectopy. The power was slowly increased to 5 kV and subsequently at the 7 kV. We then proceeded with the treatment we move the therapy had around during the treatment to make sure the stone stayed in the F2 focal point during the entire treatment and after 3000 shockwaves were delivered to the stone under fluoroscopic guidance the treatment was completed. We then used fluoroscopy to identify the stone on the Right side stent was already in place. We then positioned the patient under the lithotripter and we used triangulation technique to identify the location of the stone and then we made sure that the stone was engaged in the F2 focal point of F2 Donier lithoprior machine. Once the patient was positioned appropriately and the stone was identified and placed in the F2 focal point of the lithotripter machine we then proceeded with shockwave lithotripsy. In the beginning the shockwave was delivered at a rate of 90 shocks per minute, we monitor the EKG for any ectopy. The power was slowly increased to 5 kV and subsequently at the 7 kV. We then proceeded with the treatment we move the therapy had around during the treatment to make sure the stone stayed in the F2 focal point during the entire treatment and after 3000 shockwaves were delivered to the stone under fluoroscopic guidance the treatment was completed. The patient was given instructions to call the office to make an a follow-up appointment with an xray to evaluate the success of the treatment, pateint understands that its possible the stones may need another procedure. At this point the patient's anesthetic was reversed patient was extubated and taken back to the PACU in stable condition. Surgeon: shady Type of Anesthesia: General Drains: stent on right, new stent placed on the left Admit VTE Documentation VTE Present on Admission: No VTE Mechan Device Prophylaxis: SCD's VTE Pharm Prophylaxis ordered?: No
[2022-03-07] MEDS: Acetaminophen 500 MG Tablet PO (22:42)
[2022-03-08 01:09] VITALS: BP 149/80; PULSE 83; RESP 18; TEMP 37; O2SAT 92
[2022-03-08 01:12] VITALS: BMI 36.1
[2022-03-08 05:16] VITALS: BP 132/90; PULSE 79; RESP 18; TEMP 36.6; O2SAT 94
[2022-03-08 05:20] VITALS: BMI 36.1
--- NOTE | 2022-03-08 08:34 | PCM.DC.SUM ---
Providers Date of Admission: 03/07/22 Primary Care Physician: Dr. Madhav Weston MD Reason For Visit: RENAL COLIC Medications at Discharge Home Medications febuxostat [Uloric] 40 mg PO DAILY 03/22/15 pravastatin 80 mg PO QHS 03/22/15 hydrocodone-acetaminophen 1 - 2 tab PO Q4H PRN PRN #20 tablet 03/24/15 ciprofloxacin HCl [Cipro] 500 mg PO BID #10 tab 03/05/22 losartan 100 mg PO DAILY 03/05/22 metoprolol tartrate 12.5 mg PO BID 03/05/22 oxycodone-acetaminophen 1 tab PO Q6H PRN 7 Days #10 tab 03/05/22 Hospital Course Summary of Care Provided Hospital Course: Patient was admitted for severe pain on the left side from a 4 mm obstructing stone and underwent shockwave lithotripsy and stent placement he also has a stones on the right side that were treated and broke up really well. He will go home today. Weight / BMI Weight Weight: 117 kg Body Mass Index (BMI) 36.1 ABG / Lab / Microbiology Data Result Diagrams: 03/07/22 00:04 03/07/22 00:04 D/C Instructions Discharge Diet: No restrictions Call your doctor if you observe: Fever of 101 or Higher Please Follow Up With: Leon Dow MD When: Call [phone] for an appointment Meaningful Use Info Meaningful Use Diagnoses (Choose all that apply): None applicable Discharge Plan Admission Admit Date/Time: 03/07/22 01:02 Primary Reason for Your Visit: ESWL Attending Provider: Leon Dow Primary Care Provider: Madhav Weston Chi Instructions Patient Instructions: Shock Wave Lithotripsy Discharge Orders/Prescriptions Prescriptions: Continued pravastatin 80 MG tablet 80 mg PO QHS RF: 0 febuxostat [Uloric] 40 MG tablet 40 mg PO DAILY RF: 0 hydrocodone-acetaminophen 1 TABLET tablet 1 - 2 tab PO Q4H PRN PRN (Reason: Pain) Qty: 20 RF: 0 losartan 100 mg tablet 100 mg PO DAILY RF: 0 metoprolol tartrate 25 mg tablet 12.5 mg PO BID RF: 0 ciprofloxacin HCl [Cipro] 500 mg tablet 500 mg PO BID Qty: 10 RF: 0 oxycodone-acetaminophen 5-325 mg tablet 1 tab PO Q6H PRN (Reason: pain) 7 Days Qty: 10 RF: 0 Referrals / Follow Up: Leon Dow MD [STAFF PHYSICIAN] - Madhav Weston Chi, MD [Primary Care Provider] -
[2022-03-08 09:34] VITALS: BP 144/79; PULSE 98; RESP 16; TEMP 36.8; O2SAT 95
== END 2022-03-08 10:07 | disposition home or self-care (01) | DRG 660 ==
LOC: ED 03-07 00:49 → MS3 03-07 01:06
PROVIDERS: Admitting Provider Urology; Emergency Provider Emergency Medicine; PCP Family Medicine Geriatric Medicine; Visit Provider Urology
PROC: 0T778DZ Dilation of Left Ureter with Intraluminal Device, Via Natural or Artificial Opening Endoscopic (ICD-10-PCS; CPT 50590; principal; 2022-03-07 16:45)
DX: N13.2 Hydronephrosis with renal and ureteral calculous obstruction (principal); N13.4 Hydroureter; E78.00 Pure hypercholesterolemia, unspecified; I10 Essential (primary) hypertension; M54.9 Dorsalgia, unspecified; Z87.442 Personal history of urinary calculi; Z79.899 Other long term (current) drug therapy; R10.9 Unspecified abdominal pain; E66.9 Obesity, unspecified; Z68.35 Body mass index [BMI] 35.0-35.9, adult
CPT/HCPCS: 74018; 74176; 76000; 80048; 80053; 81001; 83690; 85025; 87086; 96361; 96374; 96375; 96376; 99283; 99284; J7030; J7120; A4216; C1769; C2617; J2405

== ENCOUNTER → 2022-03-11 | Outpatient (CLI) | payer OTHER, SELFPAY ==
--- NOTE | 2022-03-11 07:50 | RAD_ITS ---
EXAM: XR ABDOMEN, 1 VIEW CLINICAL INDICATION: CALCULUS OF KIDNEY TECHNIQUE: Frontal supine view of the abdomen/pelvis. This report was created using [employer] report generation technology. COMPARISON: None. FINDINGS: LOWER THORAX: No acute pathology. GASTROINTESTINAL TRACT: Unremarkable. Non-obstructive. No bowel or stomach distention. ORGANS: Double-J ureteral stents in place. Calcification overlying the right kidney. This may suggest renal stone. No organomegaly. BONES/JOINTS: No acute pathology. SOFT TISSUES: No acute pathology. RAD/Abdomen Single View IMPRESSION: Double-J ureteral stents in place. Calcification overlying the right kidney. This may suggest renal stone. Electronically Signed: Aristides Stephen MD at 17:43 EDT ,
== END | disposition home or self-care (01) ==
LOC: RAD 07:49
PROVIDERS: PCP Family Medicine Geriatric Medicine; Referring Provider Urology; Visit Provider Urology
DX: N20.0 Calculus of kidney (principal)
CPT/HCPCS: 74018

== ENCOUNTER → 2022-03-12 | Outpatient (CLI) | payer OTHER, SELFPAY ==
--- NOTE | 2022-03-12 13:33 | VDLE_ITS ---
Reason For Study: edema Procedure LEFT This is a venous duplex using B-mode, color GSV is normal. flow and spectral Doppler. CFV is compressible, spontaneous, phasic, Exam performed in department. competent, and demonstrates normal The exam was abbreviated due to the COVID 19 augmentation. protocol. FV is compressible, spontaneous, phasic, The exam was diagnostic. competent and demonstrates normal A preliminary report was called and/or faxed augmentation. to Dr. Weston's office. POP V is compressible, spontaneous, phasic, competent and demonstrates normal augmentation. T/P Trunk is compressible. PTV is compressible. LT PerV is compressible. Soleus V is dilated and noncompressible. VL/Venous Duplex US, Unilateral Interpretation Summary Acute deep vein thrombosis is noted in the left soleus vein. The remainder of t he left lower extremity deep venous system is patent and compressible. Valvular competence ap pears intact within the proximal deep venous system on the left . The left great saphenous vein yoa ears patent and compressible segmentally. Ordering Physician: Madhav Weston Performed By: Irvin Milian RVT
== END | disposition home or self-care (01) ==
LOC: CVS 13:32
PROVIDERS: PCP Family Medicine Geriatric Medicine; Visit Provider Family Medicine Geriatric Medicine
DX: R60.9 Edema, unspecified (principal)
CPT/HCPCS: 93971

== ENCOUNTER → 2022-04-18 | Outpatient (CLI) | payer OTHER, SELFPAY ==
[2022-04-18 12:07] LABS: Uric Acid 6.8 mg/dL (3.5-7.2)
== END | disposition home or self-care (01) ==
LOC: POLAB3 09:16
PROVIDERS: PCP Family Medicine Geriatric Medicine; Visit Provider Family Medicine Geriatric Medicine
DX: M10.9 Gout, unspecified (principal)
CPT/HCPCS: 36415; 84550

== ENCOUNTER → 2022-08-19 | Outpatient (CLI) | payer OTHER, SELFPAY ==
[2022-08-19 17:19] LABS: Absolute Lymphocyte Count 0.93 X10^3/uL (0.83-4.51); Absolute Neutrophil Count 7.3 X10^3/uL (2.0-7.7); Basophil# 0.03 X10^3/uL; Basophil% 0.3 % (0-1); Eosinophils% 3.3 % (0-5); Hematocrit 48.6 % (40-54); Hemoglobin 16.3 g/dL (13.0-16.5); Lymphocyte # 0.93 X10^3/ul (0.83-4.51); Lymphocyte % 10.2 % (19-41); Mean Corp Hgb Conc 33.5 g/dL (32-36); Mean Corpuscular Hgb 29.5 pg (27.0-32.0); Mean Platelet Vol. 10.5 fl (6.2-12.0); Monocyte# 0.57 X10^3/uL; Monocyte% 6.2 % (0-10); NRBC Flagged by Analyzer 0 % (0-5); Neutrophil % 79.7 % (47-70); Platelet Count 254 K/mm3 (150-450); RBC Distribution Width CV 12.6 % (11.6-14.6); RBC Distribution Width SD 40.8 fl (35.1-43.9); Red Blood Count 5.52 M/mm3 (4.6-6.2); White Blood Count 9.2 K/mm3 (4.4-11.0)
[2022-08-19 17:35] LABS: Vitamin D,25 Hydroxy 20.5 ng/mL
[2022-08-19 17:53] LABS: ALB/GLOB Ratio 1.2 RATIO (0.9-2.4); AST(SGOT) 15 U/L (15-37); Alanine Aminotransfer ALT/SGPT 28 U/L (16-61); Albumin, Serum 4.2 g/dL (3.2-5.0); Alkaline Phosphatase 67 U/L (45-117); Anion Gap 8 (5-15); BUN 14 mg/dL (7-18); BUN/Creat Ratio 12.8 RATIO (10-20); Calcium,Total 8.4 mg/dL (8.5-10.1); Chloride 108 mmol/L (98-107); Creatinine, Serum 1.09 mg/dL (0.70-1.30); EST Glomerular Filtration Rate 72 mL/min (>60); Est Glom Filt Rate - Afr Amer 87 mL/min (>60); Globulin 3.6 g/dL (2.2-4.2); Glucose 86 mg/dL (74-106); PSA,Total - Annual Screen 1.01 ng/mL (0.00-4.00); Potassium 3.8 mmol/L (3.5-5.1); Protein, Total 7.8 g/dL (6.4-8.2); Sodium Level 141 mmol/L (136-145); Thyroid Stim Hormone (TSH) 2.14 uIU/mL (0.358-3.74); Uric Acid 6.3 mg/dL (3.5-7.2)
== END | disposition home or self-care (01) ==
LOC: POLAB3 13:17
PROVIDERS: PCP Family Medicine Geriatric Medicine; Visit Provider Family Medicine Geriatric Medicine
DX: E55.9 Vitamin D deficiency, unspecified (principal); I10 Essential (primary) hypertension; M10.9 Gout, unspecified; Z12.5 Encounter for screening for malignant neoplasm of prostate
CPT/HCPCS: 36415; 80053; 82306; 84153; 84443; 84550; 85025; G0103

== ENCOUNTER → 2023-01-05 | Outpatient (CLI) | payer OTHER, SELFPAY ==
--- NOTE | 2023-01-05 10:54 | RAD_ITS ---
STUDY: X-RAY - RIGHT KNEE REASON FOR EXAM: Male, 67 years old. Pain following a fall. TECHNIQUE: 3 view(s) of the knee. COMPARISON: None. FINDINGS: Normal visualized distal femur. Normal visualized proximal tibia and fibula. Normal proximal tibiofibular articulation. Normal medial femorotibial compartment. Normal lateral femorotibial compartment. Normal patellofemoral articulation. The soft tissue structures are unremarkable. RAD/Knee 3 Views IMPRESSION: Normal x-ray examination of the knee. Electronically Signed: Jonathan Whitten MD at 11:38 EDT ,
--- NOTE | 2023-01-05 11:00 | RAD_ITS ---
STUDY: X-RAY - RIGHT HAND REASON FOR EXAM: Male, 67 years old. Pain and swelling following a recent fall. TECHNIQUE: 3 view(s) of the hand. COMPARISON: None. FINDINGS: Normal radiocarpal articulation. Normal distal radioulnar joint. Normal visualized carpal bones. Normal carpal articulations Normal carpometacarpal articulation of the thumb. Normal second through fifth carpometacarpal joints. Nondisplaced fracture along the distal neck of the fifth metacarpal with overlying soft tissue swelling. Normal metacarpophalangeal joint of the thumb. Normal interphalangeal joint of the thumb. Normal proximal and distal phalanges of the thumb. Normal metacarpophalangeal joints of the second through fifth fingers. There is diffuse articular joint space narrowing of the proximal and distal interphalangeal joints of the second through fifth fingers, but without erosive changes or periarticular soft tissue swelling. Normal phalanges of the second through fifth fingers. Soft tissue swelling. RAD/Hand Min 3 Views IMPRESSION: Nondisplaced fracture of the distal neck of the fifth metacarpal with overlying soft tissue swelling. Degenerative changes as described. Electronically Signed: Jonathan Whitten MD at 11:38 EDT ,
== END | disposition home or self-care (01) ==
LOC: RAD 10:53
PROVIDERS: PCP Family Medicine Geriatric Medicine; Visit Provider Family Medicine Geriatric Medicine
DX: M79.641 Pain in right hand (principal); M25.561 Pain in right knee
CPT/HCPCS: 73130; 73562

== ENCOUNTER 2023-01-06 11:53 | Outpatient (RCR) | payer OTHER, SELFPAY ==
--- NOTE | 2023-01-07 09:27 | HP.OTEVAL_ITS ---
Patient's Visit Information DORIS RANKIN is a 67 year old M, referred to Occupational Therapy by Dr. Colt Tesfaye MD, with a diagnosis of right nondisplaced fx of neck of 5th metacarpal. Date of Evaluation: 01/06/23 Occupational Therapist: Miriam Pendleton, LOVE/Jaskaran, CHT - Subjective This 67 year old male was seen for OT eval with Dx of right nondisplaced fx of neck of 5th metacarpal on 12/30/22. Pt states mechanism of injury was changing tire- fell forward on fisted hand- swollen and difficulty with pain this am so went to and found he had fx. 5th metacarpal head. pt arrives for custom orthosis to provide protection and support while healing - Goals Goal:: pt will demo IND with donning/doffing of custom orthosis and care/skin precaution by end of 1st session. - Rehabilitation General Assessment: pt arrives with need of custom orthosis for 5th metacarpal head fx. to allow for healing and protection. Pt would benefit from custom orthosis wrist at 30* ext and MCP at 80* flex- to increase healing. Today therapist armin. custom orthosis instructed by ortho. Pt was instructed in donning and doffing of orthosis, skin care and precautions. Pt advised to return for orthosis for adj as swelling decreases. pt demo understanding and aggress to POC. Rehabilitation Potential: Good - Anticipated Interventions Orthoses, Home Program - Visit Plan TEXT: Thank you for the opportunity to evaluate your patient. For Medicare and Medicare HMO plans, please review the plan of care and approve it. It will need to be FAXED BACK to us at [phone] for Medicare purposes. Please let me know if there are questions or concerns regarding this plan of care. Physician Signature: Date:
--- NOTE | 2023-05-13 15:20 | HP.OTDCSUM ---
Discharge Summary D/C Summary: It has been my pleasure to treat DORIS RANKIN under orders from Dr. Colt Tesfaye MD, for the diagnosis of right nondisplaced fx of neck of 5th metacarpal for a total of 1 visit(s). Please see the following information for a summary of their discharge status. Objective Objective/Function: pt was seen for orthosis fabrication only. Goals Patient Goals: Other Other: orthosis use of protection and support of fx healing Goal:: pt will demo IND with donning/doffing of custom orthosis and care/skin precaution by end of 1st session. D/C Information d/c sentence: If there are questions or concerns regarding this patient's occupational therapy, please fell free to call me at [phone]. Thank you for the referral of this patient. Sincerely, Miriam Pendleton, JACKSONR/L, CHT
== END 2023-01-06 19:00 | disposition home or self-care (01) ==
LOC: OT 11:53
PROVIDERS: PCP Family Medicine Geriatric Medicine; Referring Provider Orthopaedic Surgery Sports Medicine; Visit Provider Orthopaedic Surgery Sports Medicine
DX: S62.366D Nondisplaced fracture of neck of fifth metacarpal bone, right hand, subsequent encounter for fracture with routine healing (principal)
CPT/HCPCS: 97165; 97760

== ENCOUNTER → 2023-02-10 | Outpatient (CLI) | payer OTHER, SELFPAY ==
[2023-02-10 17:38] LABS: Absolute Lymphocyte Count 1.68 X10^3/uL (0.83-4.51); Absolute Neutrophil Count 4.4 X10^3/uL (2.0-7.7); Basophil# 0.02 X10^3/uL; Basophil% 0.3 % (0-1); Eosinophil# 0.15 X10^3/uL; Eosinophils% 2.3 % (0-5); Hematocrit 46.5 % (40-54); Hemoglobin 15.4 g/dL (13.0-16.5); Lymphocyte # 1.68 X10^3/ul (0.83-4.51); Lymphocyte % 25.2 % (19-41); Mean Corp Hgb Conc 33.1 g/dL (32-36); Mean Corpuscular Hgb 29.7 pg (27.0-32.0); Mean Corpuscular Volume 89.6 fL (80-94); Mean Platelet Vol. 10.7 fl (6.2-12.0); Monocyte# 0.38 X10^3/uL; Monocyte% 5.7 % (0-10); NRBC Flagged by Analyzer 0 % (0-5); Neutrophil # 4.42 X10^3/uL (2.7-7.7); Neutrophil % 66.3 % (47-70); Platelet Count 227 K/mm3 (150-450); RBC Distribution Width CV 12.8 % (11.6-14.6); RBC Distribution Width SD 42.2 fl (35.1-43.9); Red Blood Count 5.19 M/mm3 (4.6-6.2); White Blood Count 6.7 K/mm3 (4.4-11.0)
[2023-02-10 19:01] LABS: ALB/GLOB Ratio 1.3 RATIO (0.9-2.4); AST(SGOT) 16 U/L (15-37); Alanine Aminotransfer ALT/SGPT 23 U/L (16-61); Albumin, Serum 3.8 g/dL (3.2-5.0); Alkaline Phosphatase 58 U/L (45-117); Anion Gap 8 (5-15); BUN 15 mg/dL (7-18); BUN/Creat Ratio 12.6 RATIO (10-20); Calcium,Total 8.7 mg/dL (8.5-10.1); Chloride 110 mmol/L (98-107); Creatinine, Serum 1.19 mg/dL (0.70-1.30); EST Glomerular Filtration Rate 65 mL/min (>60); Est Glom Filt Rate - Afr Amer 79 mL/min (>60); Glucose 87 mg/dL (74-106); Potassium 3.9 mmol/L (3.5-5.1); Protein, Total 6.8 g/dL (6.4-8.2); Sodium Level 142 mmol/L (136-145); Thyroid Stim Hormone (TSH) 2.16 uIU/mL (0.358-3.74)
== END | disposition home or self-care (01) ==
LOC: POLAB3 13:17
PROVIDERS: PCP Family Medicine Geriatric Medicine; Visit Provider Family Medicine Geriatric Medicine
DX: E55.9 Vitamin D deficiency, unspecified (principal); I10 Essential (primary) hypertension
CPT/HCPCS: 36415; 80053; 82306; 84443; 85025

== ENCOUNTER → 2023-09-07 | Outpatient (CLI) | payer OTHER, SELFPAY ==
[2023-09-07 13:39] LABS: Absolute Lymphocyte Count 1.51 X10^3/uL (0.83-4.51); Absolute Neutrophil Count 4.3 X10^3/uL (2.0-7.7); Basophil# 0.05 X10^3/uL; Basophil% 0.8 % (0-1); Eosinophil# 0.32 X10^3/uL; Eosinophils% 4.9 % (0-5); Hematocrit 49.1 % (40-54); Hemoglobin 15.9 g/dL (13.0-16.5); Lymphocyte # 1.51 X10^3/ul (0.83-4.51); Lymphocyte % 23.1 % (19-41); Mean Corp Hgb Conc 32.4 g/dL (32-36); Mean Corpuscular Hgb 28.8 pg (27.0-32.0); Mean Corpuscular Volume 88.9 fL (80-94); Mean Platelet Vol. 10.8 fl (6.2-12.0); Monocyte# 0.37 X10^3/uL; Monocyte% 5.7 % (0-10); NRBC Flagged by Analyzer 0 % (0-5); Neutrophil # 4.25 X10^3/uL (2.7-7.7); Neutrophil % 64.9 % (47-70); Platelet Count 266 K/mm3 (150-450); RBC Distribution Width CV 12.8 % (11.6-14.6); RBC Distribution Width SD 41.9 fl (35.1-43.9); Red Blood Count 5.52 M/mm3 (4.6-6.2); White Blood Count 6.5 K/mm3 (4.4-11.0)
[2023-09-07 13:57] LABS: Vitamin D,25 Hydroxy 24.9 ng/mL
[2023-09-07 14:09] LABS: ALB/GLOB Ratio 1.1 RATIO (0.9-2.4); AST(SGOT) 13 U/L (15-37); Alanine Aminotransfer ALT/SGPT 21 U/L (16-61); Albumin, Serum 3.8 g/dL (3.2-5.0); Alkaline Phosphatase 64 U/L (45-117); Anion Gap 8 (5-15); BUN 16 mg/dL (7-18); BUN/Creat Ratio 12.6 RATIO (10-20); Calcium,Total 8.3 mg/dL (8.5-10.1); Chloride 111 mmol/L (98-107); Creatinine, Serum 1.27 mg/dL (0.70-1.30); EST Glomerular Filtration Rate 60 mL/min (>60); Est Glom Filt Rate - Afr Amer 73 mL/min (>60); Globulin 3.4 g/dL (2.2-4.2); Glucose 94 mg/dL (74-106); PSA,Total - Annual Screen 0.92 ng/mL (0.00-4.00); Potassium 4.2 mmol/L (3.5-5.1); Protein, Total 7.2 g/dL (6.4-8.2); Sodium Level 143 mmol/L (136-145); Thyroid Stim Hormone (TSH) 3.27 uIU/mL (0.358-3.74); Uric Acid 7.2 mg/dL (3.5-7.2)
== END | disposition home or self-care (01) ==
LOC: POLAB3 09:19
PROVIDERS: PCP Family Medicine Geriatric Medicine; Visit Provider Family Medicine Geriatric Medicine
DX: I10 Essential (primary) hypertension (principal); E55.9 Vitamin D deficiency, unspecified; M10.9 Gout, unspecified
CPT/HCPCS: 36415; 80053; 82306; 84153; 84443; 84550; 85025; G0103

== ENCOUNTER → 2023-11-24 | Outpatient (CLI) | payer OTHER, SELFPAY | END | disposition home or self-care (01) | LOC: PSN 07:47 | PROVIDERS: PCP Family Medicine Geriatric Medicine; Referring Provider Family Medicine Geriatric Medicine; Visit Provider Family Medicine Geriatric Medicine | DX: R68.83 Chills (without fever) (principal) | CPT/HCPCS: 87631 ==

== ENCOUNTER → 2024-03-10 | Outpatient (CLI) | payer OTHER, SELFPAY ==
[2024-03-10 10:28] LABS: Absolute Lymphocyte Count 1.43 X10^3/uL (0.83-4.51); Basophil# 0.03 X10^3/uL; Basophil% 0.5 % (0-1); Eosinophil# 0.41 X10^3/uL; Eosinophils% 6.6 % (0-5); Hemoglobin 15.2 g/dL (13.0-16.5); Lymphocyte # 1.43 X10^3/ul (0.83-4.51); Mean Corpuscular Hgb 29.6 pg (27.0-32.0); Mean Corpuscular Volume 89.7 fL (80-94); Mean Platelet Vol. 10.2 fl (6.2-12.0); Monocyte# 0.31 X10^3/uL; NRBC Flagged by Analyzer 0 % (0-5); Neutrophil # 4.01 X10^3/uL (2.7-7.7); Neutrophil % 64.6 % (47-70); Platelet Count 261 K/mm3 (150-450); RBC Distribution Width CV 13.2 % (11.6-14.6); Red Blood Count 5.13 M/mm3 (4.6-6.2); White Blood Count 6.2 K/mm3 (4.4-11.0)
[2024-03-10 11:21] LABS: Vitamin D,25 Hydroxy 24.7 ng/mL
[2024-03-10 11:22] LABS: ALB/GLOB Ratio 1.2 RATIO (0.9-2.4); AST(SGOT) 16 U/L (15-37); Alanine Aminotransfer ALT/SGPT 21 U/L (16-61); Albumin, Serum 3.8 g/dL (3.2-5.0); Alkaline Phosphatase 50 U/L (45-117); Anion Gap 6 (5-15); BUN 12 mg/dL (7-18); BUN/Creat Ratio 10.1 RATIO (10-20); Calcium,Total 8.5 mg/dL (8.5-10.1); Chloride 109 mmol/L (98-107); Cholesterol 140 mg/dL (200); Creatinine, Serum 1.19 mg/dL (0.70-1.30); EST Glomerular Filtration Rate 65 mL/min (>60); Est Glom Filt Rate - Afr Amer 78 mL/min (>60); Globulin 3.2 g/dL (2.2-4.2); Glucose 100 mg/dL (74-106); High Density Lipoprotein 46 mg/dL; Potassium 4.3 mmol/L (3.5-5.1); Sodium Level 140 mmol/L (136-145); Thyroid Stim Hormone (TSH) 1.77 uIU/mL (0.358-3.74); Triglycerides 124 mg/dL; Uric Acid 5.8 mg/dL (3.5-7.2); Very Low Density Lipoprotein 25 mg/dL (5-40)
== END | disposition home or self-care (01) ==
LOC: LAB 09:47
PROVIDERS: PCP Family Medicine Geriatric Medicine; Referring Provider Family Medicine Geriatric Medicine; Visit Provider Family Medicine Geriatric Medicine
DX: I10 Essential (primary) hypertension (principal); M10.9 Gout, unspecified; E55.9 Vitamin D deficiency, unspecified; E78.5 Hyperlipidemia, unspecified
CPT/HCPCS: 36415; 80053; 80061; 82306; 84443; 84550; 85025

== ENCOUNTER → 2024-09-14 | Outpatient (CLI) | payer MEDICARE, SELFPAY ==
[2024-09-14 09:22] LABS: Absolute Lymphocyte Count 1.62 X10^3/uL (0.83-4.51); Absolute Neutrophil Count 3.9 X10^3/uL (2.0-7.7); Basophil# 0.05 X10^3/uL; Basophil% 0.8 % (0-1); Eosinophil# 0.35 X10^3/uL; Eosinophils% 5.5 % (0-5); Lymphocyte # 1.62 X10^3/ul (0.83-4.51); Lymphocyte % 25.7 % (19-41); Mean Corp Hgb Conc 33.3 g/dL (32-36); Mean Corpuscular Hgb 29.7 pg (27.0-32.0); Mean Corpuscular Volume 89.1 fL (80-94); Mean Platelet Vol. 9.9 fl (6.2-12.0); Monocyte# 0.39 X10^3/uL; Monocyte% 6.2 % (0-10); NRBC Flagged by Analyzer 0 % (0-5); Neutrophil # 3.87 X10^3/uL (2.7-7.7); Neutrophil % 61.3 % (47-70); Platelet Count 252 K/mm3 (150-450); RBC Distribution Width CV 12.9 % (11.6-14.6); RBC Distribution Width SD 41.9 fl (35.1-43.9); Red Blood Count 5.39 M/mm3 (4.6-6.2); White Blood Count 6.3 K/mm3 (4.4-11.0)
[2024-09-14 10:06] LABS: ALB/GLOB Ratio 1.2 RATIO (0.9-2.4); AST(SGOT) 19 U/L (15-37); Alanine Aminotransfer ALT/SGPT 29 U/L (16-61); Albumin, Serum 3.9 g/dL (3.2-5.0); Alkaline Phosphatase 56 U/L (45-117); Anion Gap 3 (5-15); BUN 16 mg/dL (7-18); BUN/Creat Ratio 12.2 RATIO (10-20); Calcium,Total 8.8 mg/dL (8.5-10.1); Chloride 112 mmol/L (98-107); Cholesterol 178 mg/dL (200); Creatinine, Serum 1.31 mg/dL (0.70-1.30); EST Glomerular Filtration Rate 58 mL/min (>60); Est Glom Filt Rate - Afr Amer 70 mL/min (>60); Globulin 3.3 g/dL (2.2-4.2); Glucose 107 mg/dL (74-106); High Density Lipoprotein 48 mg/dL; PSA,Total - Annual Screen 1.05 ng/mL (0.00-4.00); Potassium 4.8 mmol/L (3.5-5.1); Protein, Total 7.2 g/dL (6.4-8.2); Sodium Level 142 mmol/L (136-145); Triglycerides 149 mg/dL; Uric Acid 6.9 mg/dL (3.5-7.2); Very Low Density Lipoprotein 30 mg/dL (5-40)
[2024-09-14 13:12] LABS: Vitamin D,25 Hydroxy 20.6 ng/mL
== END | disposition home or self-care (01) ==
PROVIDERS: PCP Family Medicine Geriatric Medicine; Visit Provider Family Medicine Geriatric Medicine
DX: I10 Essential (primary) hypertension (principal); M10.9 Gout, unspecified; E55.9 Vitamin D deficiency, unspecified; E78.5 Hyperlipidemia, unspecified; Z12.5 Encounter for screening for malignant neoplasm of prostate
CPT/HCPCS: 36415; 80053; 80061; 82306; 84153; 84443; 84550; 85025; G0103

== ENCOUNTER → 2025-03-15 | Outpatient (CLI) | payer MEDICARE, SELFPAY ==
[2025-03-15 10:05] LABS: Absolute Lymphocyte Count 1.62 X10^3/uL (0.83-4.51); Absolute Neutrophil Count 3.8 X10^3/uL (2.0-7.7); Basophil# 0.05 X10^3/uL; Basophil% 0.8 % (0-1); Eosinophil# 0.43 X10^3/uL; Eosinophils% 6.9 % (0-5); Hematocrit 46.5 % (40-54); Lymphocyte # 1.62 X10^3/ul (0.83-4.51); Lymphocyte % 25.9 % (19-41); Mean Corp Hgb Conc 34.4 g/dL (32-36); Mean Corpuscular Hgb 30.2 pg (27.0-32.0); Mean Corpuscular Volume 87.9 fL (80-94); Mean Platelet Vol. 9.7 fl (6.2-12.0); Monocyte# 0.35 X10^3/uL; Monocyte% 5.6 % (0-10); NRBC Flagged by Analyzer 0 % (0-5); Neutrophil # 3.78 X10^3/uL (2.7-7.7); Neutrophil % 60.5 % (47-70); Platelet Count 251 K/mm3 (150-450); RBC Distribution Width CV 13.1 % (11.6-14.6); RBC Distribution Width SD 41.9 fl (35.1-43.9); Red Blood Count 5.29 M/mm3 (4.6-6.2); White Blood Count 6.3 K/mm3 (4.4-11.0)
[2025-03-15 10:57] LABS: Cholesterol 168 mg/dL (<=200); High Density Lipoprotein 44 mg/dL; Low Density Lipoprotein Calc. 96 mg/dL; Triglycerides 139 mg/dL; Uric Acid 7.8 mg/dL (3.5-7.2); Very Low Density Lipoprotein 28 mg/dL (5-40); Vitamin D,25 Hydroxy 22.4 ng/mL (30-100); cholesterol:hdl ratio screen 3.79
[2025-03-15 10:58] LABS: ALB/GLOB Ratio 1.4 RATIO (0.9-2.4); AST(SGOT) 23 U/L (<=37); Alanine Aminotransfer ALT/SGPT 13 U/L (<=46); Albumin, Serum 4.2 g/dL (3.4-4.8); Alkaline Phosphatase 56 U/L (40-129); Anion Gap 11 (5-15); BUN 19 mg/dL (4-19); BUN/Creat Ratio 14.4 RATIO (10-20); Calcium,Total 9.1 mg/dL (7.6-11.0); Carbon Dioxide 22.8 mmol/L (21.0-32.0); Chloride 107 mmol/L (98-108); Creatinine, Serum 1.29 mg/dL (0.70-1.20); EST Glomerular Filtration Rate 61 (>60); Glucose 109 mg/dL (70-99); Potassium 4.6 mmol/L (3.3-5.1); Protein, Total 7.2 g/dL (5.9-8.4); Sodium Level 141 mmol/L (133-145); Total Bilirubin 0.86 mg/dL (0.00-1.30)
== END | disposition home or self-care (01) ==
LOC: LAB 09:38
PROVIDERS: PCP Family Medicine Geriatric Medicine; Referring Provider Family Medicine Geriatric Medicine; Visit Provider Family Medicine Geriatric Medicine
DX: I10 Essential (primary) hypertension (principal); E55.9 Vitamin D deficiency, unspecified; E78.5 Hyperlipidemia, unspecified; M10.9 Gout, unspecified
CPT/HCPCS: 36415; 80053; 80061; 82306; 84443; 84550; 85025

== ENCOUNTER → 2025-09-15 | Outpatient (CLI) | payer MEDICARE, SELFPAY ==
[2025-09-15 10:12] LABS: Hematocrit 45.8 % (40-54); Hemoglobin 15.3 g/dL (13.0-16.5); Immature Granulocytes Count 0.010 X10^3/uL (0.0-0.0); Mean Corp Hgb Conc 33.4 g/dL (32-36); Mean Corpuscular Volume 89.3 fL (80-94); Mean Platelet Vol. 10.0 fl (6.2-12.0); NRBC Flagged by Analyzer 0 % (0-5); Platelet Count 213 K/mm3 (150-450); RBC Distribution Width CV 12.3 % (11.6-14.6); RBC Distribution Width SD 40.5 fl (35.1-43.9); Red Blood Count 5.13 M/mm3 (4.6-6.2); White Blood Count 5.5 K/mm3 (4.4-11.0)
[2025-09-15 11:00] LABS: Cholesterol 152 mg/dL (<=200); Low Density Lipoprotein Calc. 92 mg/dL; PSA,Total - Annual Screen 0.78 ng/mL (0.02-4.00); Triglycerides 93 mg/dL; Uric Acid 6.7 mg/dL (3.5-7.2); Very Low Density Lipoprotein 19 mg/dL (5-40); Vitamin D,25 Hydroxy 15.5 ng/mL (30-100); cholesterol:hdl ratio screen 3.57
[2025-09-16 07:46] LABS: AST(SGOT) 17 U/L (<=37); Alanine Aminotransfer ALT/SGPT 16 U/L (<=46); Albumin, Serum 3.9 g/dL (3.4-4.8); Alkaline Phosphatase 46 U/L (40-129); Anion Gap 10 (5-15); BUN 19 mg/dL (4-19); BUN/Creat Ratio 15.0 RATIO (10-20); Calcium,Total 8.4 mg/dL (7.6-11.0); Carbon Dioxide 22.6 mmol/L (21.0-32.0); Chloride 106 mmol/L (98-108); Globulin 2.3 g/dL (2.2-4.2); Glucose 101 mg/dL (70-99); Potassium 4.3 mmol/L (3.3-5.1)
== END | disposition home or self-care (01) ==
LOC: LAB 09:53
PROVIDERS: PCP Family Medicine Geriatric Medicine; Referring Provider Family Medicine Geriatric Medicine; Visit Provider Family Medicine Geriatric Medicine
DX: E55.9 Vitamin D deficiency, unspecified (principal); E78.5 Hyperlipidemia, unspecified; I10 Essential (primary) hypertension; M10.9 Gout, unspecified; Z12.5 Encounter for screening for malignant neoplasm of prostate
CPT/HCPCS: 36415; 80053; 80061; 82306; 84153; 84443; 84550; 85025; G0103